=== PATIENT | male | born 1970 | race Hispanic/Latino ===

== ENCOUNTER 2017-05-24 14:20 | Emergency (ER) | payer OTHER ==
[2017-05-24 14:30] VITALS: BMI 59.2
[2017-05-24 14:37] VITALS: PULSE 79; RESP 18; TEMP 98.8; O2SAT 96
[2017-05-24 16:35] LABS: BASO # 0.1 K/uL (0.0-0.2); BASO % 1.2 % (0.0-2.0); EOS # 0.2 K/uL (0.0-0.7); EOS % 1.9 % (0.0-4.0); HEMATOCRIT 41.9 % (35.0-51.0); LYMPH # 2.1 K/uL (1.0-4.3); LYMPH % 24.8 % (20.0-40.0); MEAN CORPUSCULAR HEMOGLOBIN 29.6 pg (27.0-31.0); MONO # 0.8 K/uL (0.0-0.8); MONO % 9.2 % (0.0-10.0); RED CELL DISTRIBUTION WIDTH 13.4 % (11.5-14.5); WHITE BLOOD COUNT 8.5 K/uL (4.8-10.8)
[2017-05-24 17:23] LABS: ALB/GLOB RATIO 1.2 (1.0-2.1); ALKALINE PHOSPHATASE 72 U/L (38-126); ALT/SGPT 37 U/L (21-72); AST/SGOT 24 U/L (17-59); BILIRUBIN,TOTAL 0.4 mg/dL (0.2-1.3); BLOOD UREA NITROGEN 14 mg/dL (9-20); CALCIUM 8.6 mg/dl (8.6-10.4); CARBON DIOXIDE 27 mmol/L (22-30); CHLORIDE 98 mmol/L (98-107); GFR AFRICAN-AMERICAN > 60; GLUCOSE,RANDOM 121 mg/dL (75-110); POTASSIUM 4.3 mmol/L (3.6-5.2); SODIUM 132 mmol/L (132-148)
[2017-05-24 18:03] VITALS: BP 125/73
--- NOTE | 2017-05-24 18:26 | C.PDOC ---
Time Seen by Provider: 05/24/17 15:30 Chief Complaint (Nursing): Lower Extremity Problem/Injury History Per: Patient Onset/Duration Of Symptoms: Days (chronic) Current Symptoms Are (Timing): Still Present Location Of Injury: Right: Leg Quality Of Symptoms: Swollen, Draining (mild) Severity: Moderate Additional History Per: Prior Records Past Medical History Reviewed: Historical Data, Nursing Documentation, Vital Signs Vital Signs: Last Vital Signs Temp 98.8 F 05/24/17 14:30 Pulse 79 05/24/17 14:30 Resp 18 05/24/17 14:30 BP 125/73 05/24/17 18:00 Pulse Ox 96 05/24/17 14:30 - Medical History PMH: Diabetes, Peripheral Edema, Sleep Apnea Family History: States: Unknown Family Hx - Social History Hx Tobacco Use: No Hx Alcohol Use: No Hx Substance Use: No - Immunization History Hx Tetanus Toxoid Vaccination: No Hx Influenza Vaccination: No Hx Pneumococcal Vaccination: No Review Of Systems Except As Marked, All Systems Reviewed And Found Negative. Constitutional: Negative for: Fever, Weakness Cardiovascular: Negative for: Chest Pain Respiratory: Negative for: Shortness of Breath Gastrointestinal: Negative for: Vomiting, Abdominal Pain Musculoskeletal: Positive for: Leg Pain. Negative for: Neck Pain, Back Pain Neurological: Negative for: Weakness, Numbness, Seizures, Altered Mental Status Physical Exam - Physical Exam Appears: Non-toxic, No Acute Distress Skin: Warm, Dry Head: Atraumatic, Normacephalic Eye(s): bilateral: Normal Inspection, PERRL, EOMI Neck: Normal ROM, Supple Cardiovascular: Rhythm Regular Respiratory: Normal Breath Sounds, No Accessory Muscle Use Gastrointestinal/Abdominal: Soft, No Tenderness Back: No CVA Tenderness Extremity: Normal ROM, Pedal Edema, Other (right lower leg chronic ulcer. No signs of cellulitis or acute infection. ) Neurological/Psych: Oriented x3, Normal Motor, Normal Sensation ED Course And Treatment - Laboratory Results Result Diagrams: 05/24/17 16:30 05/24/17 17:06 Lab Interpretation: No Acute Changes O2 Sat by Pulse Oximetry: 96 Pulse Ox Interpretation: Normal Reassessment Condition: Improved Disposition Counseled Patient/Family Regarding: Studies Performed, Diagnosis, Need For Followup, Rx Given - Disposition Referrals: Elaina Floyd MD [Medical Doctor] - Disposition: HOME/ ROUTINE Disposition Time: 18:31 Condition: STABLE Additional Instructions: Follow up with your doctor for further evaluation and treatment. Return to the ER if you develop fever, redness, pus drainage, worsening of symptoms or if you have any other concerns. Prescriptions: hydroCHLOROthiazide [Microzide] 12.5 mg PO DAILY #30 cap Instructions: Leg Edema (ED) Forms: [employer] (Slovak) - Clinical Impression Clinical Impression: Chronic ulcer of right leg, Bilateral edema of lower extremity
== END 2017-05-24 18:48 | disposition home or self-care (01) ==
LOC: C.ER 14:20
DX: L97.919 Non-pressure chronic ulcer of unspecified part of right lower leg with unspecified severity (principal); R60.0 Localized edema; E11.9 Type 2 diabetes mellitus without complications

== ENCOUNTER 2017-06-03 14:39 | Inpatient (IN) | payer OTHER ==
[2017-06-03 14:55] VITALS: BMI 62.8
--- NOTE | 2017-06-03 16:42 | C.PDOC ---
History Of Present Illness 47 year old male with chronic leg infections presents to the ED to be evaluated. The patient states that his infection is getting worse in the bilateral lower extremities. He reports that he was told by his PMD to present to the ED for evaluation. Denies fever, chills. Time Seen by Provider: 06/03/17 16:13 Chief Complaint (Nursing): Lower Extremity Problem/Injury History Per: Patient History/Exam Limitations: no limitations Current Symptoms Are (Timing): Still Present Past Medical History Reviewed: Historical Data, Nursing Documentation, Vital Signs Vital Signs: Last Vital Signs Temp 98.4 F 06/03/17 14:54 Pulse 81 06/03/17 14:54 Resp 18 06/03/17 14:54 BP 162/92 H 06/03/17 14:54 Pulse Ox 99 06/03/17 16:49 - Medical History PMH: No Chronic Diseases, Diabetes, Peripheral Edema, Sleep Apnea Surgical History: No Surg Hx Family History: States: Unknown Family Hx - Social History Hx Tobacco Use: No Hx Alcohol Use: No Hx Substance Use: No - Immunization History Hx Tetanus Toxoid Vaccination: No Hx Influenza Vaccination: No Hx Pneumococcal Vaccination: No Review Of Systems Except As Marked, All Systems Reviewed And Found Negative. Constitutional: Negative for: Fever, Chills Musculoskeletal: Positive for: Leg Pain (b/l leg infection) Physical Exam - Physical Exam Appears: Well, No Acute Distress Skin: Normal Color, Warm, Dry, No Rash Head: Atraumatic, Normacephalic, No Tenderness, No Swelling Eye(s): bilateral: Normal Inspection, PERRL, EOMI Neck: Normal, Normal ROM, Supple Chest: Symmetrical, No Deformity, No Tenderness Cardiovascular: Rhythm Regular, No Edema, No Murmur Respiratory: Normal Breath Sounds, No Rales, No Rhonchi, No Wheezing Gastrointestinal/Abdominal: Normal Exam, Bowel Sounds, Soft, No Tenderness, No Guarding Back: Normal Inspection, No CVA Tenderness, No Muscle Spasm Extremity: Tenderness (tenderness to right calf extending to knee), No Deformity , Other (left leg (+) 2cm chronic venous ulcer to ankle; right leg draining large wounds with erythema tenderness right calf extending to the knee.) Extremity: Bilateral: Atraumatic Neurological/Psych: Oriented x3, Normal Speech, Normal Sensation ED Course And Treatment - Laboratory Results Result Diagrams: 06/03/17 16:45 06/03/17 16:45 O2 Sat by Pulse Oximetry: 99 (RA) Pulse Ox Interpretation: Normal Disposition - Disposition Disposition: HOSPITALIZED Disposition Time: 18:32 Condition: FAIR - POA Present On Arrival: None - Clinical Impression Clinical Impression: Cellulitis
[2017-06-03 16:50] LABS: BASO # 0.1 K/uL (0.0-0.2); BASO % 0.5 % (0.0-2.0); EOS # 0.1 K/uL (0.0-0.7); EOS % 1.5 % (0.0-4.0); HEMOGLOBIN 13.2 g/dL (12.0-18.0); LYMPH % 20.4 % (20.0-40.0); MEAN CORPUSCULAR HEMOGLOBIN 29.8 pg (27.0-31.0); MEAN CORPUSCULAR HGB CONC 33.8 g/dL (33.0-37.0); MONO # 0.7 K/uL (0.0-0.8); MONO % 7.5 % (0.0-10.0); NEUT # 6.8 K/uL (1.8-7.0); NEUT % 70.1 % (50.0-75.0); RBC 4.43 Mil/uL (4.40-5.90); RED CELL DISTRIBUTION WIDTH 13.6 % (11.5-14.5); WHITE BLOOD COUNT 9.7 K/uL (4.8-10.8)
[2017-06-03 16:57] LABS: PROTHROMBIN TIME 10.9 SECONDS (9.7-12.2)
[2017-06-03 17:00] LABS: ALBUMIN 3.8 g/dL (3.5-5.0); BLOOD UREA NITROGEN 16 mg/dL (9-20); CALCIUM 8.4 mg/dl (8.6-10.4); GFR AFRICAN-AMERICAN > 60; GFR NON-AFRICAN AMERICAN > 60
[2017-06-03 17:01] LABS: ALB/GLOB RATIO 1.2 (1.0-2.1); ALT/SGPT 39 U/L (21-72); AST/SGOT 24 U/L (17-59)
[2017-06-03] MEDS ORDERED: Piperacillin/Tazobact 3.375 gm 100 ML IV STA (19:03)
[2017-06-03] MEDS ORDERED: Vancomycin 1 GM 1 GM/250 ML BAG IV SCH (19:15)
[2017-06-03] MEDS ORDERED: Albuterol-Ipratrop 3 mg / 0.5 (3 ml) UD INH PRN ×2 (19:35→21:00)
--- NOTE | 2017-06-03 19:45 | CP.PCM.HP ---
History of Present Illness - History of Present Illness History of Present Illness: 47 year old male with PMHx of chronic b/l leg edema/infections/ulcers (since 2004), and DMII presents with b/l lower ext. cellulitis, b/l lower ext. edema, and left lower ext. ulcer. Symptoms are associated with Lower Ext. tenderness, numbness/tingling, low ext. weakness and slight decreased range of motion. He states that his leg drains fluid at times. Patient has been having these symptoms since 2004. He sees a vascular surgeon (Dr. Serrato?) and states he gets shots for his leg edema. He does not know what the shot is. He went to his vascular doctor this morning for the shots. He also went to his PMD afterwards who sent him to the ED to get treated for cellulitis that has failed outpatient treatment. Patient is somewhat of a poor historian. Of note, patient also complain of having episodes of pleuritic chest pain, orthopnea, and dyspnea on exertion in the past. Had an ECHO a couple months ago and was told that it was normal. Also complains of FERNANDO symptoms. Patient sent for sleep study but insurance doesn't cover it. ROS POSITIVES: Lower Ext. tenderness, numbness/tingling, and decreased range of motion NEGATIVES: Fevers, chills, current SOB, current chest pain, current abdominal pain, nausea, vomiting, diarrhea, constipation, urinary symptoms. PMHx: chronic leg ulcers, chronic leg edema, chronic leg infections, DMII PSHx: laser surgery on legs (5-7 years ago) Allergies: NKDA, Seasonal Allergies Social Hx: Denies tobacco, alcohol, or illicit drug use. Works in [employer] at long-term but is on disability. Lives by himself in [place] (Basement of 2 family home) FamHx: Unknown Meds: Unknown Insulin, Unknown Diabetic Pill PMD: Dr. Elaina Terrell Present on Admission - Present on Admission Any Indicators Present on Admission: No Review of Systems - Review of Systems Review of Systems: As per HPI Past Patient History - Past Social History Smoking Status: Never Smoked - CARDIAC Hx Peripheral Edema: Yes - PULMONARY Hx Sleep Apnea: Yes - ENDOCRINE/METABOLIC Hx Endocrine Disorders: Yes Hx Diabetes Mellitus Type 2: Yes - PSYCHIATRIC Hx Substance Use: No - SURGICAL HISTORY Hx Surgeries: Yes Other/Comment: laser procedures on both legs Meds Allergies/Adverse Reactions: Allergies Allergy/AdvReac Type Severity Reaction Status Date / Time No Known Allergies Allergy Verified 06/03/17 14:53 Physical Exam - Constitutional Additional comments: Morbidly Obese - Head Exam Head Exam: ATRAUMATIC, NORMAL INSPECTION, NORMOCEPHALIC - Eye Exam Eye Exam: Normal appearance. absent: Scleral icterus - ENT Exam ENT Exam: Mucous Membranes Moist - Neck Exam Neck exam: Negative for: Lymphadenopathy - Respiratory Exam Respiratory Exam: Accessory Muscle Use, Clear to Auscultation Bilateral. absent : Rales, Rhonchi, Wheezes - Cardiovascular Exam Cardiovascular Exam: RRR, +S1, +S2 - GI/Abdominal Exam GI & Abdominal Exam: Soft, Tenderness Additional comments: Mild RUQ tenderness - Extremities Exam Extremities exam: Positive for: pedal edema (+3), tenderness. Negative for: normal inspection - Neurological Exam Neurological exam: Alert, Oriented x3 - Psychiatric Exam Psychiatric exam: Normal Affect, Normal Mood - Skin Additional comments: R leg - +3 Edema erythematous, and draining. Currently Wrapped L leg - +3 edema, 1x1cm ulcer on the left lower ext. Currently wrapped Results - Vital Signs Recent Vital Signs: Last Vital Signs Temp 98.4 F 06/03/17 14:54 Pulse 81 06/03/17 14:54 Resp 18 06/03/17 14:54 BP 162/92 H 06/03/17 14:54 Pulse Ox 99 06/03/17 18:39 - Labs Result Diagrams: 06/03/17 16:45 06/03/17 16:45 Labs: Laboratory Results - last 24 hr 06/03/17 06/03/17 06/03/17 16:45 16:45 16:45 WBC 9.7 RBC 4.43 Hgb 13.2 Hct 39.0 MCV 88.0 MCH 29.8 MCHC 33.8 RDW 13.6 Plt Count 374 MPV 7.0 L Neut % (Auto) 70.1 Lymph % (Auto) 20.4 [place] % (Auto) 7.5 Eos % (Auto) 1.5 Baso % (Auto) 0.5 Neut # 6.8 Lymph # 2.0 [place] # 0.7 Eos # 0.1 Baso # 0.1 PT 10.9 INR 1.0 APTT 28 Sodium 132 Potassium 3.7 Chloride 94 L Carbon Dioxide 29 Anion Gap 13 BUN 16 Creatinine 0.6 L Est GFR ( Amer) > 60 Est GFR (Non-Af Amer) > 60 Random Glucose 171 H Calcium 8.4 L Total Bilirubin 0.4 AST 24 ALT 39 Alkaline Phosphatase 72 Total Protein 7.0 Albumin 3.8 Globulin 3.1 Albumin/Globulin Ratio 1.2 Assessment & Plan - Assessment and Plan (Free Text) Assessment: 47 year old male with PMHx of chronic b/l leg edema/infections/ulcers (since 2004), and DMII presents with b/l lower ext. cellulitis, b/l lower ext. edema, and left lower ext. ulcer. Plan: Lower Ext. Cellulitis with ulcer complications likely 2/2 Metabolic Syndrome Vascular consult - Dr. Gautam Consider Podiatry Consult Consider ID Consult PT/OT Venous/Arterial Dopplers IV Vanc 1gram Q12H IV Zosyn 3.375 Q6H ProCal Blood Cultures Lipid Panel in AM DM II ISS - Medium Follow up with Pharmacy in the AM for meds HgBA1c and lipid panel Seasonal Allergies/Intermitent SOB SOB likely multifactorial - Possible FERNANDO, CHF, PE Pro-BNP Flonase Duonebs PRN Consider D-Dimer Consider CTA Morbid Obesity [employer] Referral Proph Heparin Protonix Florastor Heart Health Diet Patient seen and discussed with Attending Kevin Veliz -PGY1 - Date & Time Date: 06/03/17 Time: 18:30
[2017-06-03] MEDS: Piperacill/Tazo 3.375gm in Dex 3.375 GM/50 ML BAG IVPB SCH (21:30)
[2017-06-03] MEDS: Fluticasone Nasal 50 mcg/Spray NAS SCH ×2 (21:32→22:23)
[2017-06-03 21:58] LABS: B-TYPE NATRIURETIC PEPTIDE 38.3 pg/mL (0-450)
[2017-06-03] MEDS: (Novolin R) Insulin Human Regular 100 units/ml vial SC SCH (22:01)
[2017-06-04] MEDS: Piperacill/Tazo 3.375gm in Dex 3.375 GM/50 ML BAG IVPB SCH ×4 (00:54→20:30)
--- NOTE | 2017-06-04 06:00 | CP.PCM.CON ---
History of Present Illness - History of Present Illness History of Present Illness: Surgery 47 M w ho obesity, leg ulcer, venous stasis, DM came with chronic leg ulcer. Surgery is consulted to evaluate for venous stasis. Pt reports he has chronic leg ulcers and edema. b/l legs are getting larger and edematous. Area drains serous fluids. Pt is seen by vascular surgeon and has UNNA boots on. Reports that UNNA boots helps. Denies F/C/N/V/D/CP. Reports SOB on exertion/decreased ROM/numbess/tingling. Pt had not tried compression sequential boots. Reports laser vein surgery on legs. Pt reports ECHO was normal. PMHx: chronic leg ulcers, chronic leg edema, chronic leg infections, DMII , obesity, FERNANDO PSHx: laser vein surgery on legs (5-7 years ago) Social Hx: Denies tobacco, alcohol, or illicit drug use. 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 Lives by himself in [place] (Basement of 2 family home) PMD: Dr. Elaina Terrell Review of Systems - Review of Systems Review of Systems: See HPI Past Patient History - Past Medical History & Family History Past Medical History?: Yes - Past Social History Smoking Status: Never Smoked - CARDIAC Hx Peripheral Edema: Yes - PULMONARY Hx Sleep Apnea: Yes - ENDOCRINE/METABOLIC Hx Endocrine Disorders: Yes Hx Diabetes Mellitus Type 2: Yes - MUSCULOSKELETAL/RHEUMATOLOGICAL Hx Falls: No - PSYCHIATRIC Hx Substance Use: No - SURGICAL HISTORY Hx Surgeries: Yes Other/Comment: laser procedures on both legs Meds Allergies/Adverse Reactions: Allergies Allergy/AdvReac Type Severity Reaction Status Date / Time No Known Allergies Allergy Verified 06/03/17 14:53 - Medications Medications: Current Medications Albuterol/Ipratropium (Duoneb 3 Mg/0.5 Mg (3 Ml) Ud) 3 ml INH RQ6 PRN PRN Reason: SOB, Wheezing Fluticasone Propionate (Flonase) 1 spr LUISA RQ12 [facility] Last Admin: 06/03/17 22:23 Dose: Not Given Heparin Sodium (Porcine) (Heparin) 5,000 units SC Q8 [facility] Last Admin: 06/03/17 22:24 Dose: 5,000 units Vancomycin HCl (Vancomycin 1gm In Normal Saline Addvantage) 1 gm in 250 mls @ 166.667 mls/hr IV STAT [facility] Piperacillin Sod/Tazobactam Sod (Zosyn 3.375 Gm Iv Premix) 3.375 gm in 50 mls @ 100 mls/hr IVPB Q6H [facility] Last Admin: 06/04/17 00:54 Dose: 100 mls/hr Vancomycin HCl 1 gm/ Sodium (Chloride) 250 mls @ 166.6 mls/hr IVPB Q12H [facility] Insulin Human Regular (Novolin R) 0 unit SC ACHS [facility] PRN Reason: Protocol Last Admin: 06/03/17 22:01 Dose: Not Given Pantoprazole Sodium (Protonix Ec Tab) 40 mg PO DAILY [facility] Pneumococcal Polyvalent Vaccine (Pneumovax 23 Vaccine) 0.5 ml IM .ONCE ONE Stop: 06/06/17 10:01 Saccharomyces Boulardii (Florastor) 250 mg PO BID [facility] Physical Exam - Constitutional Appears: No Acute Distress - Head Exam Head Exam: ATRAUMATIC, NORMAL INSPECTION, NORMOCEPHALIC - Eye Exam Eye Exam: EOMI, Normal appearance, PERRL Pupil Exam: NORMAL ACCOMODATION, PERRL - ENT Exam ENT Exam: Mucous Membranes Moist, Normal Exam - Neck Exam Neck exam: Positive for: Normal Inspection - Respiratory Exam Respiratory Exam: Clear to Auscultation Bilateral, NORMAL BREATHING PATTERN - Cardiovascular Exam Cardiovascular Exam: REGULAR RHYTHM - GI/Abdominal Exam GI & Abdominal Exam: Normal Bowel Sounds, Soft. absent: Distended, Firm, Guarding, Tenderness - Extremities Exam Extremities exam: Positive for: pedal edema, tenderness. Negative for: full ROM , normal inspection Additional comments: b/l LE edema . UNNA boots on. - Back Exam Back exam: NORMAL INSPECTION - Neurological Exam Neurological exam: Alert, CN II-XII Intact, Normal Gait, Oriented x3, Reflexes Normal - Psychiatric Exam Psychiatric exam: Normal Affect, Normal Mood - Skin Skin Exam: Erythema, Warm Results - Vital Signs Recent Vital Signs: Last Vital Signs Temp 98.3 F 06/03/17 23:27 Pulse 85 06/03/17 23:27 Resp 20 06/03/17 23:27 BP 145/82 06/03/17 23:27 Pulse Ox 97 06/03/17 23:27 - Labs Result Diagrams: 06/03/17 16:45 06/03/17 16:45 Labs: Laboratory Results - last 24 hr 0106/03/17 06/03/17 16:45 16:45 16:45 WBC 9.7 RBC 4.43 Hgb 13.2 Hct 39.0 MCV 88.0 MCH 29.8 MCHC 33.8 RDW 13.6 Plt Count 374 MPV 7.0 L Neut % (Auto) 70.1 Lymph % (Auto) 20.4 [place] % (Auto) 7.5 Eos % (Auto) 1.5 Baso % (Auto) 0.5 Neut # 6.8 Lymph # 2.0 [place]igg # 0.7 Eos # 0.1 Baso # 0.1 PT 10.9 INR 1.0 APTT 28 Sodium 132 Potassium 3.7 Chloride 94 L Carbon Dioxide 29 Anion Gap 13 BUN 16 Creatinine 0.6 L Est GFR ( Amer) > 60 Est GFR (Non-Af Amer) > 60 POC Glucose (mg/dL) Random Glucose 171 H Hemoglobin A1c Calcium 8.4 L Total Bilirubin 0.4 AST 24 ALT 39 Alkaline Phosphatase 72 NT-Pro-B Natriuret Pep 38.3 Total Protein 7.0 Albumin 3.8 Globulin 3.1 Albumin/Globulin Ratio 1.2 Influenza Typ A,B (EIA) 06/03/17 06/03/17 06/03/17 21:28 21:37 22:27 WBC RBC Hgb Hct MCV MCH MCHC RDW Plt Count MPV Neut % (Auto) Lymph % (Auto) [place] % (Auto) Eos % (Auto) Baso % (Auto) Neut # Lymph # [place]igg # Eos # Baso # PT INR APTT Sodium Potassium Chloride Carbon Dioxide Anion Gap BUN Creatinine Est GFR ( Amer) Est GFR (Non-Af Amer) POC Glucose (mg/dL) 94 Random Glucose Hemoglobin A1c 6.9 H Calcium Total Bilirubin AST ALT Alkaline Phosphatase NT-Pro-B Natriuret Pep Total Protein Albumin Globulin Albumin/Globulin Ratio Influenza Typ A,B (EIA) Negative for flu a/b 06/04/17 02:16 WBC RBC Hgb Hct MCV MCH MCHC RDW Plt Count MPV Neut % (Auto) Lymph % (Auto) [place] % (Auto) Eos % (Auto) Baso % (Auto) Neut # Lymph # Trigg # Eos # Baso # PT INR APTT Sodium Potassium Chloride Carbon Dioxide Anion Gap BUN Creatinine Est GFR ( Amer) Est GFR (Non-Af Amer) POC Glucose (mg/dL) 105 Random Glucose Hemoglobin A1c Calcium Total Bilirubin AST ALT Alkaline Phosphatase NT-Pro-B Natriuret Pep Total Protein Albumin Globulin Albumin/Globulin Ratio Influenza Typ A,B (EIA) Assessment & Plan - Assessment and Plan (Free Text) Assessment: venous stasis -leg elevation -cont UNNA boots -ROM excercise -Ambulate -Medical management Will DW Dr. Gautam
[2017-06-04 08:01] LABS: ALB/GLOB RATIO 1.1 (1.0-2.1); ALBUMIN 3.5 g/dL (3.5-5.0); ALT/SGPT 47 U/L (21-72); AST/SGOT 33 U/L (17-59); BLOOD UREA NITROGEN 14 mg/dL (9-20); CALCIUM 8.2 mg/dl (8.6-10.4); GFR AFRICAN-AMERICAN > 60; GFR NON-AFRICAN AMERICAN > 60; HDL CHOLESTEROL 41 mg/dL (30-70)
[2017-06-04 08:09] LABS: LDL CHOLESTEROL 112 mg/dL (0-129)
[2017-06-04] MEDS: (Novolin R) Insulin Human Regular 100 units/ml vial SC SCH ×4 (08:40→21:38)
[2017-06-04] MEDS: Fluticasone Nasal 50 mcg/Spray NAS SCH ×2 (10:38→20:39)
[2017-06-04] MEDS: Saccharomyces Boulardi 250 mg Cap PO SCH ×2 (10:39→17:58)
[2017-06-04] MEDS: Pantoprazole 40 mg EC Tab PO SCH (10:39)
--- NOTE | 2017-06-04 11:02 | CP.PCM.PN ---
Subjective - Date & Time of Evaluation Date of Evaluation: 06/04/17 Time of Evaluation: 11:01 - Subjective Subjective: needs compression and elevation longterm Objective - Vital Signs/Intake and Output Vital Signs (last 24 hours): Temp Pulse Resp BP Pulse Ox 97.8 F 81 20 129/76 96 06/04/17 08:13 06/04/17 08:13 06/04/17 08:13 06/04/17 08:13 06/04/17 08:13 Intake and Output: 06/04/17 06/04/17 06:59 18:59 Intake Total 300 Balance 300 - Medications Medications: Current Medications Albuterol/Ipratropium (Duoneb 3 Mg/0.5 Mg (3 Ml) Ud) 3 ml INH RQ6 PRN PRN Reason: SOB, Wheezing Fluticasone Propionate (Flonase) 1 spr LUISA RQ12 [facility] Last Admin: 06/04/17 10:38 Dose: 1 spr Heparin Sodium (Porcine) (Heparin) 5,000 units SC Q8 [facility] Last Admin: 06/04/17 06:18 Dose: 5,000 units Vancomycin HCl (Vancomycin 1gm In Normal Saline Addvantage) 1 gm in 250 mls @ 166.667 mls/hr IV STAT [facility] Piperacillin Sod/Tazobactam Sod (Zosyn 3.375 Gm Iv Premix) 3.375 gm in 50 mls @ 100 mls/hr IVPB Q6H [facility] Last Admin: 06/04/17 09:08 Dose: 100 mls/hr Vancomycin HCl 1 gm/ Sodium (Chloride) 250 mls @ 166.6 mls/hr IVPB Q12H [facility] Last Admin: 06/04/17 06:13 Dose: 166.6 mls/hr Insulin Human Regular (Novolin R) 0 unit SC ACHS [facility] PRN Reason: Protocol Last Admin: 06/04/17 08:40 Dose: Not Given Pantoprazole Sodium (Protonix Ec Tab) 40 mg PO DAILY [facility] Last Admin: 06/04/17 10:39 Dose: 40 mg Pneumococcal Polyvalent Vaccine (Pneumovax 23 Vaccine) 0.5 ml IM .ONCE ONE Stop: 06/06/17 10:01 Saccharomyces Boulardii (Florastor) 250 mg PO BID [facility] Last Admin: 06/04/17 10:39 Dose: 250 mg - Labs Labs: 06/03/17 16:45 06/04/17 07:20 PT 10.9 SECONDS (9.7-12.2) 06/03/17 16:45 INR 1.0 06/03/17 16:45 APTT 28 SECONDS (21-34) 06/03/17 16:45
--- NOTE | 2017-06-04 14:30 | CP.PCM.PN ---
Subjective - Date & Time of Evaluation Date of Evaluation: 06/04/17 Time of Evaluation: 07:00 - Subjective Subjective: PGY1- Medicine Note- Dr. Hale's Service Patient seen and examined at bedside and in no acute distress. Patient says his lower extremities are painful especially when he moves them or they are touched. Patient denies all other complaints including headache, chest pain, shortness of breath, abdominal pain, nausea, vomiting, constipation, and diarrhea. Objective - Vital Signs/Intake and Output Vital Signs (last 24 hours): Temp Pulse Resp BP Pulse Ox 97.8 F 81 20 129/76 96 06/04/17 08:13 06/04/17 08:13 06/04/17 08:13 06/04/17 08:13 06/04/17 08:13 Intake and Output: 06/04/17 06/04/17 06:59 18:59 Intake Total 300 Balance 300 - Medications Medications: Current Medications Albuterol/Ipratropium (Duoneb 3 Mg/0.5 Mg (3 Ml) Ud) 3 ml INH RQ6 PRN PRN Reason: SOB, Wheezing Fluticasone Propionate (Flonase) 1 spr LUISA RQ12 [facility] Last Admin: 06/04/17 10:38 Dose: 1 spr Heparin Sodium (Porcine) (Heparin) 5,000 units SC Q8 [facility] Last Admin: 06/04/17 14:06 Dose: 5,000 units Vancomycin HCl (Vancomycin 1gm In Normal Saline Addvantage) 1 gm in 250 mls @ 166.667 mls/hr IV STAT [facility] Piperacillin Sod/Tazobactam Sod (Zosyn 3.375 Gm Iv Premix) 3.375 gm in 50 mls @ 100 mls/hr IVPB Q6H [facility] Last Admin: 06/04/17 14:05 Dose: 100 mls/hr Vancomycin HCl 1 gm/ Sodium (Chloride) 250 mls @ 166.6 mls/hr IVPB Q12H [facility] Last Admin: 06/04/17 06:13 Dose: 166.6 mls/hr Insulin Human Regular (Novolin R) 0 unit SC ACHS [facility] PRN Reason: Protocol Last Admin: 06/04/17 12:13 Dose: Not Given Pantoprazole Sodium (Protonix Ec Tab) 40 mg PO DAILY [facility] Last Admin: 06/04/17 10:39 Dose: 40 mg Pneumococcal Polyvalent Vaccine (Pneumovax 23 Vaccine) 0.5 ml IM .ONCE ONE Stop: 06/06/17 10:01 Saccharomyces Boulardii (Florastor) 250 mg PO BID [facility] Last Admin: 06/04/17 10:39 Dose: 250 mg - Labs Labs: 06/03/17 16:45 06/04/17 07:20 PT 10.9 SECONDS (9.7-12.2) 06/03/17 16:45 INR 1.0 06/03/17 16:45 APTT 28 SECONDS (21-34) 06/03/17 16:45 - Constitutional Appears: Non-toxic, No Acute Distress, Other (morbidly obese) - Head Exam Head Exam: ATRAUMATIC, NORMAL INSPECTION, NORMOCEPHALIC - Eye Exam Eye Exam: EOMI, Normal appearance - ENT Exam ENT Exam: Mucous Membranes Moist - Respiratory Exam Respiratory Exam: Clear to Ausculation Bilateral, NORMAL BREATHING PATTERN. absent: Rales, Rhonchi, Wheezes, Respiratory Distress, Stridor - Cardiovascular Exam Cardiovascular Exam: REGULAR RHYTHM, RRR, +S1, +S2 - GI/Abdominal Exam GI & Abdominal Exam: Soft, Normal Bowel Sounds. absent: Tenderness - Extremities Exam Extremities Exam: Pedal Edema, Tenderness Additional comments: 3+ pitting edema b/l - Neurological Exam Neurological Exam: Alert, Awake, Oriented x3 - Psychiatric Exam Psychiatric exam: Normal Affect, Normal Mood - Skin Skin Exam: Warm Additional comments: R leg - +3 Edema erythematous, and draining. Currently Wrapped L leg - +3 edema, 1x1cm ulcer on the left lower ext. Currently wrapped Assessment and Plan - Assessment and Plan (Free Text) Assessment: Lower Ext. Cellulitis with ulcer complications likely 2/2 Metabolic Syndrome Vascular consult - Dr. Gautam, help appreciated Consider ID Consult PT/OT f/u Venous/Arterial Dopplers IV Vanc 1gram Q12H IV Zosyn 3.375 Q6H f/u Blood Cultures UNNA boots as per surgery DM II ISS - Medium Follow up with Pharmacy in the AM for meds HgBA1c: 6.9 Lipid Panel: Triglycerides: 173, Cholesterol: 184, LDL: 112, HDL: 41 Seasonal Allergies/Intermitent SOB SOB likely multifactorial - Possible FERNANDO, CHF, PE Pulm consulted, Dr. 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
[2017-06-05] MEDS: Piperacill/Tazo 3.375gm in Dex 3.375 GM/50 ML BAG IVPB SCH ×4 (01:16→20:51)
[2017-06-05] MEDS: (Novolin R) Insulin Human Regular 100 units/ml vial SC SCH ×4 (08:41→21:52)
--- NOTE | 2017-06-05 09:01 | CP.PCM.PN ---
Subjective - Date & Time of Evaluation Date of Evaluation: 06/05/17 Time of Evaluation: 07:25 - Subjective Subjective: Vascular Surgery Dr. Gautam Pt S&E @bedside. NAEO. pt sleeping comfortably. Objective - Vital Signs/Intake and Output Vital Signs (last 24 hours): Temp Pulse Resp BP Pulse Ox 98.7 F 79 20 130/78 97 06/05/17 00:00 06/05/17 00:00 06/05/17 00:00 06/05/17 00:00 06/05/17 00:00 Intake and Output: 06/05/17 06/05/17 06:59 18:59 Intake Total 600 540 Balance 600 540 - Medications Medications: Current Medications Albuterol/Ipratropium (Duoneb 3 Mg/0.5 Mg (3 Ml) Ud) 3 ml INH RQ6 PRN PRN Reason: SOB, Wheezing Fluticasone Propionate (Flonase) 1 spr LUISA RQ12 [facility] Last Admin: 06/04/17 20:39 Dose: 1 spr Heparin Sodium (Porcine) (Heparin) 5,000 units SC Q8 [facility] Last Admin: 06/05/17 05:33 Dose: 5,000 units Piperacillin Sod/Tazobactam Sod (Zosyn 3.375 Gm Iv Premix) 3.375 gm in 50 mls @ 100 mls/hr IVPB Q6H [facility] Last Admin: 06/05/17 07:00 Dose: 100 mls/hr Vancomycin HCl 1 gm/ Sodium (Chloride) 250 mls @ 166.6 mls/hr IVPB Q12H [facility] Last Admin: 06/05/17 06:00 Dose: 166.6 mls/hr Insulin Human Regular (Novolin R) 0 unit SC ACHS [facility] PRN Reason: Protocol Last Admin: 06/05/17 08:41 Dose: Not Given Pantoprazole Sodium (Protonix Ec Tab) 40 mg PO DAILY [facility] Last Admin: 06/04/17 10:39 Dose: 40 mg Pneumococcal Polyvalent Vaccine (Pneumovax 23 Vaccine) 0.5 ml IM .ONCE ONE Stop: 06/06/17 10:01 Saccharomyces Boulardii (Florastor) 250 mg PO BID [facility] Last Admin: 06/04/17 17:58 Dose: 250 mg - Labs Labs: 06/03/17 16:45 06/04/17 07:20 PT 10.9 SECONDS (9.7-12.2) 06/03/17 16:45 INR 1.0 06/03/17 16:45 APTT 28 SECONDS (21-34) 06/03/17 16:45 - Constitutional Appears: Non-toxic, No Acute Distress - Head Exam Head Exam: NORMAL INSPECTION - Respiratory Exam Respiratory Exam: NORMAL BREATHING PATTERN. absent: Accessory Muscle Use, Respiratory Distress - GI/Abdominal Exam Additional comments: obese - Extremities Exam Additional comments: B/L MARY ELLEN Boots in place - Neurological Exam Neurological Exam: absent: Awake (sleeping) - Skin Skin Exam: Dry, Normal Color, Warm Assessment and Plan - Assessment and Plan (Free Text) Assessment: 47 y/o morbidly obese M w/ venous stasis - maintain leg elevation - cont UNNA boots - f/u results of LE U/S - encourage OOB to chair/Amb - cont medical management Pt discussed w/ Dr. Lotus Welsh DO PGY2
[2017-06-05 09:42] LABS: ALB/GLOB RATIO 1.2 (1.0-2.1); ALBUMIN 3.5 g/dL (3.5-5.0); ALT/SGPT 52 U/L (21-72); AST/SGOT 32 U/L (17-59); BLOOD UREA NITROGEN 11 mg/dL (9-20); CALCIUM 8.3 mg/dl (8.6-10.4); GFR AFRICAN-AMERICAN > 60; GFR NON-AFRICAN AMERICAN > 60; MAGNESIUM 1.9 mg/dL (1.6-2.3)
[2017-06-05] MEDS ORDERED: Dextrose 50% SYRINGE Inj (50 ml) IV PRN (10:18)
[2017-06-05] MEDS ORDERED: Glucagon Recombinant 1 mg Inj IM PRN (10:18)
[2017-06-05] MEDS: Pantoprazole 40 mg EC Tab PO SCH (10:44)
[2017-06-05] MEDS: Fluticasone Nasal 50 mcg/Spray NAS SCH ×3 (10:44→20:53)
[2017-06-05] MEDS: Saccharomyces Boulardi 250 mg Cap PO SCH ×2 (10:44→17:47)
--- NOTE | 2017-06-05 11:07 | CP.PCM.PN ---
Subjective - Date & Time of Evaluation Date of Evaluation: 06/05/17 Time of Evaluation: 11:00 - Subjective Subjective: Dr. Hale note: Patient is seen and examined in room. He says has been having pain in his legs for several days and has had cellulitis before. He uses insulin for diabetes and also sees a vascular surgeon for "poor veins". Objective - Vital Signs/Intake and Output Vital Signs (last 24 hours): Temp Pulse Resp BP Pulse Ox 97.9 F 66 20 98/57 L 96 06/05/17 09:00 06/05/17 09:00 06/05/17 09:00 06/05/17 09:00 06/05/17 09:00 Intake and Output: 06/05/17 06/05/17 06:59 18:59 Intake Total 600 540 Balance 600 540 - Medications Medications: Current Medications Albuterol/Ipratropium (Duoneb 3 Mg/0.5 Mg (3 Ml) Ud) 3 ml INH RQ6 PRN PRN Reason: SOB, Wheezing Dextrose (Dextrose 50% Inj) 0 ml IV STAT PRN; Protocol PRN Reason: Hypoglycemia Protocol Dextrose (Glutose 15) 15 gm PO ONCE PRN; Protocol PRN Reason: Hypoglycemia Protocol Fluticasone Propionate (Flonase) 1 spr LUISA RQ12 [facility] Last Admin: 06/05/17 10:44 Dose: 1 spr Glucagon (Glucagen Diagnostic Kit) 1 mg IM STAT PRN; Protocol PRN Reason: Hypoglycemia Protocol Heparin Sodium (Porcine) (Heparin) 5,000 units SC Q8 [facility] Last Admin: 06/05/17 05:33 Dose: 5,000 units Piperacillin Sod/Tazobactam Sod (Zosyn 3.375 Gm Iv Premix) 3.375 gm in 50 mls @ 100 mls/hr IVPB Q6H [facility] Last Admin: 06/05/17 07:00 Dose: 100 mls/hr Vancomycin HCl 1 gm/ Sodium (Chloride) 250 mls @ 166.6 mls/hr IVPB Q12H [facility] Last Admin: 06/05/17 06:00 Dose: 166.6 mls/hr Dextrose (Dextrose 5% In Water 1000 Ml) 1,000 mls @ 0 mls/hr IV .Q0M PRN; Protocol; Per Protocol PRN Reason: Hypoglycemia Protocol Insulin Human Regular (Novolin R) 0 unit SC ACHS [facility] PRN Reason: Protocol Last Admin: 06/05/17 08:41 Dose: Not Given Pantoprazole Sodium (Protonix Ec Tab) 40 mg PO DAILY [facility] Last Admin: 06/05/17 10:44 Dose: 40 mg Pneumococcal Polyvalent Vaccine (Pneumovax 23 Vaccine) 0.5 ml IM .ONCE ONE Stop: 06/06/17 10:01 Saccharomyces Boulardii (Florastor) 250 mg PO BID [facility] Last Admin: 06/05/17 10:44 Dose: 250 mg - Labs Labs: 06/03/17 16:45 06/05/17 09:12 PT 10.9 SECONDS (9.7-12.2) 06/03/17 16:45 INR 1.0 06/03/17 16:45 APTT 28 SECONDS (21-34) 06/03/17 16:45 - Constitutional Appears: Non-toxic, No Acute Distress - Eye Exam Eye Exam: Normal appearance - Respiratory Exam Respiratory Exam: Clear to Ausculation Bilateral. absent: Rales, Rhonchi, Wheezes - Cardiovascular Exam Cardiovascular Exam: REGULAR RHYTHM, RRR, +S1, +S2. absent: Gallop, Rubs - GI/Abdominal Exam GI & Abdominal Exam: Soft, Normal Bowel Sounds. absent: Tenderness - Extremities Exam Additional comments: both legs in dressing. - Psychiatric Exam Psychiatric exam: Normal Affect, Normal Mood - Skin Additional comments: redness on his legs. Assessment and Plan - Assessment and Plan (Free Text) Assessment: Lower Ext. Cellulitis with ulcer 06/05: Day 2 of IV Vanc and Zosyn, blood cultures negative so far. continue UNNA boots. complications likely 2/2 Metabolic Syndrome Vascular consult - Dr. Gautam, help appreciated Consider ID Consult PT/OT f/u Venous/Arterial Dopplers IV Vanc 1gram Q12H IV Zosyn 3.375 Q6H f/u Blood Cultures UNNA boots as per surgery DM II 06/05: continue current management. ISS - Medium Follow up with Pharmacy in the AM for meds HgBA1c: 6.9 Lipid Panel: Triglycerides: 173, Cholesterol: 184, LDL: 112, HDL: 41 Seasonal Allergies/Intermitent SOB 06/05: Echo pending. Follow up with Dr. maldonado, most likely obesity hyperventilation syndrome considering his BMI of 62. SOB likely multifactorial - Possible FERNANDO, CHF, PE Pulm consulted, Dr. Maldonado, help appreciated Pro-BNP: 38.3 Flonase Duonebs PRN f/u Echo Morbid Obesity Etl Application Developer Referral Proph Heparin 5000 u sc q8h Protonix 40 mg po daily Florastor Heart Healthy Diet
--- NOTE | 2017-06-05 14:57 | CP.PCM.CON ---
Past Patient History - Past Medical History & Family History Past Medical History?: Yes - Past Social History Smoking Status: Never Smoked - CARDIAC Hx Peripheral Edema: Yes - PULMONARY Hx Sleep Apnea: Yes - ENDOCRINE/METABOLIC Hx Endocrine Disorders: Yes Hx Diabetes Mellitus Type 2: Yes - MUSCULOSKELETAL/RHEUMATOLOGICAL Hx Falls: No - PSYCHIATRIC Hx Substance Use: No - SURGICAL HISTORY Hx Surgeries: Yes Other/Comment: laser procedures on both legs Meds Allergies/Adverse Reactions: Allergies Allergy/AdvReac Type Severity Reaction Status Date / Time No Known Allergies Allergy Verified 06/03/17 14:53 - Medications Medications: Current Medications Albuterol/Ipratropium (Duoneb 3 Mg/0.5 Mg (3 Ml) Ud) 3 ml INH RQ6 PRN PRN Reason: SOB, Wheezing Dextrose (Dextrose 50% Inj) 0 ml IV STAT PRN; Protocol PRN Reason: Hypoglycemia Protocol Dextrose (Glutose 15) 15 gm PO ONCE PRN; Protocol PRN Reason: Hypoglycemia Protocol Fluticasone Propionate (Flonase) 1 spr LUISA RQ12 [facility] Last Admin: 06/05/17 10:44 Dose: 1 spr Glucagon (Glucagen Diagnostic Kit) 1 mg IM STAT PRN; Protocol PRN Reason: Hypoglycemia Protocol Heparin Sodium (Porcine) (Heparin) 5,000 units SC Q8 [facility] Last Admin: 06/05/17 14:20 Dose: 5,000 units Piperacillin Sod/Tazobactam Sod (Zosyn 3.375 Gm Iv Premix) 3.375 gm in 50 mls @ 100 mls/hr IVPB Q6H [facility] Last Admin: 06/05/17 14:20 Dose: 100 mls/hr Vancomycin HCl 1 gm/ Sodium (Chloride) 250 mls @ 166.6 mls/hr IVPB Q12H [facility] Last Admin: 06/05/17 06:00 Dose: 166.6 mls/hr Dextrose (Dextrose 5% In Water 1000 Ml) 1,000 mls @ 0 mls/hr IV .Q0M PRN; Protocol; Per Protocol PRN Reason: Hypoglycemia Protocol Insulin Human Regular (Novolin R) 0 unit SC ACHS [facility] PRN Reason: Protocol Last Admin: 06/05/17 12:57 Dose: Not Given Pantoprazole Sodium (Protonix Ec Tab) 40 mg PO DAILY [facility] Last Admin: 06/05/17 10:44 Dose: 40 mg Pneumococcal Polyvalent Vaccine (Pneumovax 23 Vaccine) 0.5 ml IM .ONCE ONE Stop: 06/06/17 10:01 Saccharomyces Boulardii (Florastor) 250 mg PO BID [facility] Last Admin: 06/05/17 10:44 Dose: 250 mg Results - Vital Signs Recent Vital Signs: Last Vital Signs Temp 97.9 F 06/05/17 09:00 Pulse 66 06/05/17 09:00 Resp 20 06/05/17 09:00 BP 98/57 L 06/05/17 09:00 Pulse Ox 96 06/05/17 09:00 - Labs Result Diagrams: 06/03/17 16:45 06/05/17 09:12 Labs: Laboratory Results - last 24 hr 06/04/17 06/04/17 06/05/17 16:25 21:31 07:26 Sodium Potassium Chloride Carbon Dioxide Anion Gap BUN Creatinine Est GFR ( Amer) Est GFR (Non-Af Amer) POC Glucose (mg/dL) 123 H 112 H 114 H Random Glucose Calcium Phosphorus Magnesium Total Bilirubin AST ALT Alkaline Phosphatase Total Protein Albumin Globulin Albumin/Globulin Ratio 06/05/17 06/05/17 09:12 12:05 Sodium 132 Potassium 4.3 Chloride 99 Carbon Dioxide 29 Anion Gap 9 L BUN 11 Creatinine 0.7 L Est GFR ( Amer) > 60 Est GFR (Non-Af Amer) > 60 POC Glucose (mg/dL) 123 H Random Glucose 134 H Calcium 8.3 L Phosphorus 4.3 Magnesium 1.9 Total Bilirubin 0.6 AST 32 ALT 52 Alkaline Phosphatase 66 Total Protein 6.5 Albumin 3.5 Globulin 3.0 Albumin/Globulin Ratio 1.2
[2017-06-05] MEDS ORDERED: Hydrocortisone 1% Cream (30 GM) TOP PRN (21:40)
[2017-06-06] MEDS: Piperacill/Tazo 3.375gm in Dex 3.375 GM/50 ML BAG IVPB SCH ×2 (02:16→07:09)
[2017-06-06 05:15] LABS: BASO # 0.1 K/uL (0.0-0.2); BASO % 0.6 % (0.0-2.0); EOS # 0.2 K/uL (0.0-0.7); EOS % 2.7 % (0.0-4.0); LYMPH # 2.7 K/uL (1.0-4.3); LYMPH % 30.3 % (20.0-40.0); MEAN CELL VOLUME 86.9 fL (80.0-94.0); MEAN CORPUSCULAR HEMOGLOBIN 30.5 pg (27.0-31.0); MEAN CORPUSCULAR HGB CONC 35.1 g/dL (33.0-37.0); MEAN PLATELET VOLUME 7.1 fL (7.2-11.7); MONO # 0.7 K/uL (0.0-0.8); MONO % 7.9 % (0.0-10.0); NEUT # 5.2 K/uL (1.8-7.0); NEUT % 58.5 % (50.0-75.0); RBC 4.25 Mil/uL (4.40-5.90); RED CELL DISTRIBUTION WIDTH 13.6 % (11.5-14.5); WHITE BLOOD COUNT 8.8 K/uL (4.8-10.8)
[2017-06-06 05:28] LABS: ALB/GLOB RATIO 1.2 (1.0-2.1); ALBUMIN 3.7 g/dL (3.5-5.0); ALT/SGPT 49 U/L (21-72); AST/SGOT 29 U/L (17-59); BLOOD UREA NITROGEN 13 mg/dL (9-20); CALCIUM 8.2 mg/dl (8.6-10.4); GFR AFRICAN-AMERICAN > 60; GFR NON-AFRICAN AMERICAN > 60; MAGNESIUM 1.8 mg/dL (1.6-2.3)
[2017-06-06] MEDS: (Novolin R) Insulin Human Regular 100 units/ml vial SC SCH ×4 (08:13→21:36)
[2017-06-06] MEDS: Fluticasone Nasal 50 mcg/Spray NAS SCH ×2 (08:55→21:35)
--- NOTE | 2017-06-06 09:28 | CP.PCM.PN ---
Subjective - Date & Time of Evaluation Date of Evaluation: 06/06/17 Time of Evaluation: 07:00 - Subjective Subjective: Surgical Progress Note: Patient was seen and examined at bedside in the AM. No acute events overnight. Patient denies fever, nausea, vomiting, diarrhea or constipation. Objective - Vital Signs/Intake and Output Vital Signs (last 24 hours): Temp Pulse Resp BP Pulse Ox 97.8 F 75 20 145/84 97 06/06/17 08:46 06/06/17 08:46 06/06/17 08:46 06/06/17 08:46 06/06/17 08:46 Intake and Output: 06/06/17 06/06/17 06:59 18:59 Intake Total 1190 Balance 1190 - Medications Medications: Current Medications Albuterol/Ipratropium (Duoneb 3 Mg/0.5 Mg (3 Ml) Ud) 3 ml INH RQ6 PRN PRN Reason: SOB, Wheezing Dextrose (Dextrose 50% Inj) 0 ml IV STAT PRN; Protocol PRN Reason: Hypoglycemia Protocol Dextrose (Glutose 15) 15 gm PO ONCE PRN; Protocol PRN Reason: Hypoglycemia Protocol Fluticasone Propionate (Flonase) 1 spr LUISA RQ12 [facility] Last Admin: 06/06/17 08:55 Dose: 1 spr Glucagon (Glucagen Diagnostic Kit) 1 mg IM STAT PRN; Protocol PRN Reason: Hypoglycemia Protocol Heparin Sodium (Porcine) (Heparin) 5,000 units SC Q8 [facility] Last Admin: 06/06/17 06:04 Dose: 5,000 units Hydrocortisone (Cortizone 1% Cream) 1 gm TOP Q6H PRN PRN Reason: Itching / Pruritus Last Admin: 06/05/17 22:31 Dose: 1 applic Piperacillin Sod/Tazobactam Sod (Zosyn 3.375 Gm Iv Premix) 3.375 gm in 50 mls @ 100 mls/hr IVPB Q6H [facility] Last Admin: 06/06/17 07:09 Dose: 100 mls/hr Vancomycin HCl 1 gm/ Sodium (Chloride) 250 mls @ 166.6 mls/hr IVPB Q12H [facility] Last Admin: 06/06/17 06:04 Dose: 166.6 mls/hr Dextrose (Dextrose 5% In Water 1000 Ml) 1,000 mls @ 0 mls/hr IV .Q0M PRN; Protocol; Per Protocol PRN Reason: Hypoglycemia Protocol Insulin Human Regular (Novolin R) 0 unit SC ACHS [facility] PRN Reason: Protocol Last Admin: 06/06/17 08:13 Dose: Not Given Pantoprazole Sodium (Protonix Ec Tab) 40 mg PO DAILY [facility] Last Admin: 06/05/17 10:44 Dose: 40 mg Pneumococcal Polyvalent Vaccine (Pneumovax 23 Vaccine) 0.5 ml IM .ONCE ONE Stop: 06/06/17 10:01 Saccharomyces Boulardii (Florastor) 250 mg PO BID [facility] Last Admin: 06/05/17 17:47 Dose: 250 mg - Labs Labs: 06/06/17 05:12 06/06/17 05:12 PT 10.9 SECONDS (9.7-12.2) 06/03/17 16:45 INR 1.0 06/03/17 16:45 APTT 28 SECONDS (21-34) 06/03/17 16:45 - Constitutional Appears: No Acute Distress - Head Exam Head Exam: ATRAUMATIC, NORMAL INSPECTION - Eye Exam Eye Exam: Normal appearance - ENT Exam ENT Exam: Mucous Membranes Moist - Respiratory Exam Respiratory Exam: NORMAL BREATHING PATTERN - Cardiovascular Exam Cardiovascular Exam: +S1, +S2 - GI/Abdominal Exam Additional comments: obese - Extremities Exam Additional comments: bilateral dressing in place - Neurological Exam Neurological Exam: Alert, Awake, Oriented x3 - Psychiatric Exam Psychiatric exam: Normal Affect, Normal Mood - Skin Skin Exam: Dry, Intact, Normal Color, Warm Assessment and Plan - Assessment and Plan (Free Text) Assessment: 47 year old male morbidly obese with venous stasis - continue leg elevation - encourage OOB to chair/Amb - continue antibiotics - continue medical management - no surgical intervention at this time Tawana Scott PGY-1
[2017-06-06] MEDS ORDERED: Influenza Vaccine 60 mcg/0.5 mL SYR (4YR UP) IM ONE (10:00)
[2017-06-06] MEDS ORDERED: Pneumococcal 23-Valent Vaccine IM ONE (10:00)
[2017-06-06] MEDS: Saccharomyces Boulardi 250 mg Cap PO SCH ×2 (10:55→19:01)
[2017-06-06] MEDS: Pantoprazole 40 mg EC Tab PO SCH (10:55)
--- NOTE | 2017-06-06 11:38 | VASCLAB ---
PROCEDURE: Lower Extremity Venous Duplex Exam. HISTORY: Lower Ext. Edema/venous stasis cellulitis/ulceration Morbid obesity, venous insufficiency PRIORS: None. TECHNIQUE: Bilateral common femoral, femoral, popliteal and posterior tibial, peroneal and great saphenous veins were evaluated. Flow was assessed with color Doppler, compressibility, assessment of phasic flow and augmentation response. Report prepared by Kervin Blank, T FINDINGS: RIGHT: 1. Common Femoral Vein: 1.1. Compressibility - Fully compressible: Thrombus - None : Flow - Phasic: Augmentation -Normal: Reflux - Moderate. 2. Femoral Vein: 2.1. Compressibility - Fully compressible: Thrombus - None : Flow - Phasic: Augmentation -Normal: Reflux - . 3. Popliteal Vein: 3.1. Compressibility - Fully compressible: Thrombus - None : Flow - Phasic: Augmentation -Normal: Reflux - Moderate. 4. Posterior Tibial Vein: 4.1. Compressibility - : Thrombus - : Flow - : Augmentation -: Reflux - . 5. Peroneal Vein: 5.1. Compressibility - : Thrombus - : Flow - : Augmentation -: Reflux - . 6. Great Saphenous Vein: 6.1. Compressibility - Fully compressible: Thrombus - None: Flow - Phasic: Augmentation - : Reflux - Moderate. LEFT: 1. Common Femoral Vein: 1.1. Compressibility - Fully compressible: Thrombus - None: Flow - Phasic: Augmentation -Normal: Reflux - Moderate. 2. Femoral Vein: 2.1. Compressibility - Fully compressible: Thrombus - None: Flow - Phasic: Augmentation -Normal: Reflux - . 3. Popliteal Vein: 3.1. Compressibility - Fully compressible: Thrombus - None : Flow - Phasic: Augmentation -Normal: Reflux - Moderate. 4. Posterior Tibial Vein: 4.1. Compressibility - : Thrombus - : Flow - : Augmentation -: Reflux - . 5. Peroneal Vein: 5.1. Compressibility - : Thrombus - : Flow - : Augmentation -: Reflux - . 6. Great Saphenous Vein: 6.1. Compressibility - Fully compressible: Thrombus - None: Flow - Phasic: Augmentation - : Reflux - Moderate. OTHER FINDINGS: Right: None significant. Left: None significant. IMPRESSION: Right: The distal femoral was not clearly seen due to depth and swelling. The posterior tibial, peroneal and great saphenous vein below the knee were not evaluated due to compression dressings in place. No evidence of deep or superficial vein thrombosis for those clearly visualized veins of the right lower extremity. Moderate venous reflux was noted in the deep and superficial venous system. Left: The distal femoral was not clearly seen due to depth and swelling. The posterior tibial, peroneal and great saphenous vein below the knee were not evaluated due to compression dressings in place. No evidence of deep or superficial vein thrombosis for those clearly visualized veins of the left lower extremity. Moderate venous reflux was noted in the deep and superficial venous system.
--- NOTE | 2017-06-06 12:24 | CP.PCM.CON ---
History of Present Illness - History of Present Illness History of Present Illness: 47 M w ho came with chronic nfected leg ulcer/ venous stasis. Pt reports he has chronic leg ulcers and edema. b/l legs are getting larger and edematous. Area drains serous fluids. ID consulted for antibiotic management reports some improvement since IV rx started PMHx: chronic leg ulcers, chronic leg edema, chronic leg infections, DMII , obesity, FERNANDO PSHx: laser vein surgery on legs (5-7 years ago) Social Hx: Denies tobacco, alcohol, or illicit drug use. Works in [employer] at long term but is on disability. Lives by himself in [place] (Basement of 2 family home) Review of Systems - Constitutional Constitutional: As Per HPI - EENT Eyes: absent: As Per HPI, Blind Spots, Blurred Vision, Change in Vision, Decreased Night Vision, Diplopia, Discharge, Dry Eye, Exophthalmos, Floaters, Irritation, Itchy Eyes, Loss of Peripheral Vision, Pain, Photophobia, Requires Corrective Lenses, Sees Flashes, Spots in Vision, Tunnel Vision, Other Visual Disturbances, Loss of Vision, Other Ears: absent: As Per HPI, Decreased Hearing, Ear Discharge, Ear Pain, Tinnitus, Abnormal Hearing, Disequilibrium, Dizziness, Other Nose/Mouth/Throat: absent: As Per HPI, Epistaxis, Nasal Congestion, Nasal Discharge, Nasal Obstruction, Nasal Trauma, Nose Pain, Post Nasal Drip, Sinus Pain, Sinus Pressure, Bleeding Gums, Change in Voice, Dental Pain, Dry Mouth, Dysphagia, Halitosis, Hoarsness, Lip Swelling, Mouth Lesions, Mouth Pain, Odynophagia, Sore Throat, Throat Swelling, Tongue Swelling, Facial Pain, Neck Pain, Neck Mass, Other - Cardiovascular Cardiovascular: As Per HPI - Respiratory Respiratory: absent: As Per HPI, Cough, Dyspnea, Hemoptysis, Dyspnea on Exertion , Wheezing, Snoring, Stridor, Pain on Inspiration, Chest Congestion, Excessive Mucous Production, Change in Mucous Color, Pain with Coughing, Other - Gastrointestinal Gastrointestinal: absent: As Per HPI, Abdominal Pain, Belching, Bloating, Change in Bowel Habits, Change in Stool Character, Coffee Ground Emesis, Constipation, Cramping, Diarrhea, Dyspepsia, Dysphagia, Early Satiety, Excessive Flatus, Fecal Incontinence, Heartburn, Hematemesis, Hematochezia, Loose Stools, Melena, Nausea, Odynophagia, Temesmus, Vomiting, Other - Genitourinary Genitourinary: absent: As Per HPI, Change in Urinary Stream, Difficulty Urinating, Dysuria, Flank Pain, Hematuria, Pyuria, Nocturia, Urinary Incontinence, Urinary Frequency, Urinary Hesitance, Urinary Urgency, Voiding Freq/Small Amts, Freq UTI, Hx Renal/Bladder Calculi, Hx /Renal Surgery, Bladder Distension, Other - Musculoskeletal Musculoskeletal: As Per HPI - Integumentary Integumentary: As Per HPI, Skin Pain, Wounds - Neurological Neurological: absent: As Per HPI, Abnormal Gait, Abnormal Hearing, Abnormal Movements, Abnormal Speech, Behavioral Changes, Burning Sensations, Confusion, Convulsions, Disequilibrium, Dizziness, Numbness, Focal Weakness, Frequent Falls , Headaches, Lack of Coordination, Loss of Vision, Memory Loss, Paresthesias, Radicular Pain, Restless Legs, Sensory Deficit, Syncope, Tingling, Tremor, Vertigo, Weakness, Other Visual Disturbances, Other - Psychiatric Psychiatric: absent: As Per HPI, Abnormal Sleep Pattern, Anhedonia, Anxiety, Auditory Hallucinations, Behavioral Changes, Change in Appetite, Change in Libido, Confusion, Depression, Difficulty Concentrating, Hallucinations, Homicidal Ideation, Hopelessness, Irritability, Memory Loss, Mood Swings, Panic Attacks, Paranoia, Suicidal Ideation, Visual Hallucinations, Tactile Hallucinations, Other - Endocrine Endocrine: absent: As Per HPI, Change in Body Appearance, Change in Libido, Cold Intolorance, Deepening of Voice, Excessive Sweating, Fatigue, Flushing, Heat Intolorance, Increase in Ring/Shoe/Hat Size, Palpitations, Polydipsia, Polyphagia, Polyuria, Other - Hematologic/Lymphatic Hematologic: absent: As Per HPI, Easy Bleeding, Easy Bruising, Lymphadenopathy, Other Past Patient History - Past Medical History & Family History Past Medical History?: Yes - Past Social History Smoking Status: Never Smoked - CARDIAC Hx Peripheral Edema: Yes - PULMONARY Hx Sleep Apnea: Yes - ENDOCRINE/METABOLIC Hx Endocrine Disorders: Yes Hx Diabetes Mellitus Type 2: Yes - MUSCULOSKELETAL/RHEUMATOLOGICAL Hx Falls: No - PSYCHIATRIC Hx Substance Use: No - SURGICAL HISTORY Hx Surgeries: Yes Other/Comment: laser procedures on both legs Meds Allergies/Adverse Reactions: Allergies Allergy/AdvReac Type Severity Reaction Status Date / Time No Known Allergies Allergy Verified 06/03/17 14:53 - Medications Medications: Current Medications Albuterol/Ipratropium (Duoneb 3 Mg/0.5 Mg (3 Ml) Ud) 3 ml INH RQ6 PRN PRN Reason: SOB, Wheezing Dextrose (Dextrose 50% Inj) 0 ml IV STAT PRN; Protocol PRN Reason: Hypoglycemia Protocol Dextrose (Glutose 15) 15 gm PO ONCE PRN; Protocol PRN Reason: Hypoglycemia Protocol Fluticasone Propionate (Flonase) 1 spr LUISA RQ12 [facility] Last Admin: 06/06/17 08:55 Dose: 1 spr Glucagon (Glucagen Diagnostic Kit) 1 mg IM STAT PRN; Protocol PRN Reason: Hypoglycemia Protocol Heparin Sodium (Porcine) (Heparin) 5,000 units SC Q8 [facility] Last Admin: 06/06/17 06:04 Dose: 5,000 units Hydrocortisone (Cortizone 1% Cream) 1 gm TOP Q6H PRN PRN Reason: Itching / Pruritus Last Admin: 06/05/17 22:31 Dose: 1 applic Dextrose (Dextrose 5% In Water 1000 Ml) 1,000 mls @ 0 mls/hr IV .Q0M PRN; Protocol; Per Protocol PRN Reason: Hypoglycemia Protocol Vancomycin HCl 2 gm/ Sodium (Chloride) 500 mls @ 166.667 mls/hr IVPB Q12H [facility] Insulin Human Regular (Novolin R) 0 unit SC ACHS [facility] PRN Reason: Protocol Last Admin: 06/06/17 12:15 Dose: Not Given Pantoprazole Sodium (Protonix Ec Tab) 40 mg PO DAILY [facility] Last Admin: 06/06/17 10:55 Dose: 40 mg Saccharomyces Boulardii (Florastor) 250 mg PO BID [facility] Last Admin: 06/06/17 10:55 Dose: 250 mg Physical Exam - Constitutional Appears: Non-toxic, Chronically Ill - Head Exam Head Exam: NORMOCEPHALIC - Eye Exam Eye Exam: PERRL - ENT Exam ENT Exam: Mucous Membranes Dry, Normal External Ear Exam - Neck Exam Neck exam: Negative for: Lymphadenopathy - Respiratory Exam Respiratory Exam: Decreased Breath Sounds, Clear to Auscultation Bilateral - Cardiovascular Exam Cardiovascular Exam: REGULAR RHYTHM, +S1, +S2 - GI/Abdominal Exam GI & Abdominal Exam: Diminished Bowel Sounds, Soft. absent: Tenderness - Rectal Exam Rectal Exam: Deferred - Exam Exam: NORMAL INSPECTION - Extremities Exam Extremities exam: Positive for: pedal edema, tenderness, pedal pulses present. Negative for: calf tenderness, normal inspection Additional comments: swelling and skin changes bilat lower extrem consistent with cellulitis/ venous stasis dermatitis/ phlebitis - Back Exam Back exam: absent: CVA tenderness (L), CVA tenderness (R) - Neurological Exam Neurological exam: Alert, CN II-XII Intact, Oriented x3, Reflexes Normal - Psychiatric Exam Psychiatric exam: Normal Mood - Skin Skin Exam: Dry Results - Vital Signs Recent Vital Signs: Last Vital Signs Temp 97.8 F 06/06/17 08:46 Pulse 75 06/06/17 08:46 Resp 20 06/06/17 08:46 BP 145/84 06/06/17 08:46 Pulse Ox 97 06/06/17 08:46 - Labs Result Diagrams: 06/06/17 05:12 06/06/17 05:12 Labs: Laboratory Results - last 24 hr 06/05/17 06/05/17 06/06/17 17:08 21:28 05:12 WBC RBC Hgb Hct MCV MCH MCHC RDW Plt Count MPV Neut % (Auto) Lymph % (Auto) [place] % (Auto) Eos % (Auto) Baso % (Auto) Neut # Lymph # [place] # Eos # Baso # Sodium 130 L Potassium 3.8 Chloride 98 Carbon Dioxide 24 Anion Gap 11 BUN 13 Creatinine 0.8 Est GFR ( Amer) > 60 Est GFR (Non-Af Amer) > 60 POC Glucose (mg/dL) 110 116 H Random Glucose 137 H Calcium 8.2 L Phosphorus 3.8 Magnesium 1.8 Total Bilirubin 0.5 AST 29 ALT 49 Alkaline Phosphatase 72 Total Protein 6.7 Albumin 3.7 Globulin 3.0 Albumin/Globulin Ratio 1.2 Vancomycin Trough 06/06/17 06/06/17 06/06/17 05:12 05:12 07:10 WBC 8.8 RBC 4.25 L Hgb 13.0 Hct 36.9 MCV 86.9 MCH 30.5 MCHC 35.1 RDW 13.6 Plt Count 353 MPV 7.1 L Neut % (Auto) 58.5 Lymph % (Auto) 30.3 [place] % (Auto) 7.9 Eos % (Auto) 2.7 Baso % (Auto) 0.6 Neut # 5.2 Lymph # 2.7 [place] # 0.7 Eos # 0.2 Baso # 0.1 Sodium Potassium Chloride Carbon Dioxide Anion Gap BUN Creatinine Est GFR ( Amer) Est GFR (Non-Af Amer) POC Glucose (mg/dL) 119 H Random Glucose Calcium Phosphorus Magnesium Total Bilirubin AST ALT Alkaline Phosphatase Total Protein Albumin Globulin Albumin/Globulin Ratio Vancomycin Trough 7.7 06/06/17 11:24 WBC RBC Hgb Hct MCV MCH MCHC RDW Plt Count MPV Neut % (Auto) Lymph % (Auto) [place] % (Auto) Eos % (Auto) Baso % (Auto) Neut # Lymph # [place] # Eos # Baso # Sodium Potassium Chloride Carbon Dioxide Anion Gap BUN Creatinine Est GFR ( Amer) Est GFR (Non-Af Amer) POC Glucose (mg/dL) 135 H Random Glucose Calcium Phosphorus Magnesium Total Bilirubin AST ALT Alkaline Phosphatase Total Protein Albumin Globulin Albumin/Globulin Ratio Vancomycin Trough Assessment & Plan (1) Cellulitis Status: Acute (2) Bilateral edema of lower extremity Status: Acute (3) Chronic ulcer of right leg Status: Acute (4) Lymphedema of both lower extremities Status: Acute (5) Morbid obesity Status: Acute
[2017-06-06] MEDS ORDERED: Vancomycin 2 GM in Sodium Chloride 0.9% 500 ML IVPB SCH (12:30)
[2017-06-06] MEDS ORDERED: Perflutren Lipid Microsphere 1.5 ML SUS IV ONE (12:34)
--- NOTE | 2017-06-06 18:10 | CP.PCM.PN ---
Subjective - Date & Time of Evaluation Date of Evaluation: 06/06/17 Time of Evaluation: 08:30 - Subjective Subjective: The patient was seen and examined this morning. He states that he was able to sleep okay last night. He denies shortness of breath, fever, chills, palpitations, and hemoptysis but admits to cough and green sputum production. He also complains of occasional pleuritic chest pain and fatigue. He denies any trouble breathing today. He states that his appetite is fine and that he is having no trouble urinating and defecating. Vital signs: Temperature: 97.8 F Pulse: 75 bpm Respiratory rate: 20 Blood pressure: 145/84 mm Hg Pulse oximetry: 97% on RA Physical examination: Cardiovascular: RRR, +s1, +s2, no murmurs, rubs, or gallops Pulmonary: lungs clear to auscultation bilaterally, normal breathing pattern, no rales or rhonchi Labs: Microbiology: Vancomycin trough 7.7 Left leg wound culture MRSA + Assessment & Plan: Intermittent shortness of breath * Likely multifactorial etiology due to obesity hypoventilation syndrome (BMI 62 ), obstructive sleep apnea, and some degree of CHF * Continue Flonase and Duonebs prn * F/u echocardiogram Objective - Vital Signs/Intake and Output Vital Signs (last 24 hours): Temp Pulse Resp BP Pulse Ox 97.8 F 80 20 136/86 95 06/06/17 16:37 06/06/17 16:37 06/06/17 16:37 06/06/17 16:37 06/06/17 16:37 Intake and Output: 06/06/17 06/06/17 06:59 18:59 Intake Total 1190 Balance 1190 - Medications Medications: Current Medications Albuterol/Ipratropium (Duoneb 3 Mg/0.5 Mg (3 Ml) Ud) 3 ml INH RQ6 PRN PRN Reason: SOB, Wheezing Dextrose (Dextrose 50% Inj) 0 ml IV STAT PRN; Protocol PRN Reason: Hypoglycemia Protocol Dextrose (Glutose 15) 15 gm PO ONCE PRN; Protocol PRN Reason: Hypoglycemia Protocol Fluticasone Propionate (Flonase) 1 spr LUISA RQ12 [facility] Last Admin: 06/06/17 08:55 Dose: 1 spr Glucagon (Glucagen Diagnostic Kit) 1 mg IM STAT PRN; Protocol PRN Reason: Hypoglycemia Protocol Heparin Sodium (Porcine) (Heparin) 5,000 units SC Q8 [facility] Last Admin: 06/06/17 14:09 Dose: 5,000 units Hydrocortisone (Cortizone 1% Cream) 1 gm TOP Q6H PRN PRN Reason: Itching / Pruritus Last Admin: 06/05/17 22:31 Dose: 1 applic Dextrose (Dextrose 5% In Water 1000 Ml) 1,000 mls @ 0 mls/hr IV .Q0M PRN; Protocol; Per Protocol PRN Reason: Hypoglycemia Protocol Vancomycin HCl 2 gm/ Sodium (Chloride) 500 mls @ 166.667 mls/hr IVPB Q12H [facility] Insulin Human Regular (Novolin R) 0 unit SC ACHS [facility] PRN Reason: Protocol Last Admin: 06/06/17 17:40 Dose: Not Given Pantoprazole Sodium (Protonix Ec Tab) 40 mg PO DAILY [facility] Last Admin: 06/06/17 10:55 Dose: 40 mg Saccharomyces Boulardii (Florastor) 250 mg PO BID [facility] Last Admin: 06/06/17 10:55 Dose: 250 mg - Labs Labs: 06/06/17 05:12 06/06/17 05:12 PT 10.9 SECONDS (9.7-12.2) 06/03/17 16:45 INR 1.0 06/03/17 16:45 APTT 28 SECONDS (21-34) 06/03/17 16:45
--- NOTE | 2017-06-06 19:31 | CP.PCM.PN ---
<Kevin Veliz - Last Filed: 06/06/17 19:29> Subjective - Date & Time of Evaluation Date of Evaluation: 06/06/17 Time of Evaluation: 10:00 - Subjective Subjective: Patient has been seen and examined. No overnight events reported. Reports B/L lower Ext. pain. Currently no SOB or chest pain. Objective - Vital Signs/Intake and Output Vital Signs (last 24 hours): Temp Pulse Resp BP Pulse Ox 97.8 F 80 20 136/86 95 06/06/17 16:37 06/06/17 16:37 06/06/17 16:37 06/06/17 16:37 06/06/17 16:37 - Medications Medications: Current Medications Albuterol/Ipratropium (Duoneb 3 Mg/0.5 Mg (3 Ml) Ud) 3 ml INH RQ6 PRN PRN Reason: SOB, Wheezing Dextrose (Dextrose 50% Inj) 0 ml IV STAT PRN; Protocol PRN Reason: Hypoglycemia Protocol Dextrose (Glutose 15) 15 gm PO ONCE PRN; Protocol PRN Reason: Hypoglycemia Protocol Fluticasone Propionate (Flonase) 1 spr LUISA RQ12 [facility] Last Admin: 06/06/17 08:55 Dose: 1 spr Glucagon (Glucagen Diagnostic Kit) 1 mg IM STAT PRN; Protocol PRN Reason: Hypoglycemia Protocol Heparin Sodium (Porcine) (Heparin) 5,000 units SC Q8 [facility] Last Admin: 06/06/17 14:09 Dose: 5,000 units Hydrocortisone (Cortizone 1% Cream) 1 gm TOP Q6H PRN PRN Reason: Itching / Pruritus Last Admin: 06/05/17 22:31 Dose: 1 applic Dextrose (Dextrose 5% In Water 1000 Ml) 1,000 mls @ 0 mls/hr IV .Q0M PRN; Protocol; Per Protocol PRN Reason: Hypoglycemia Protocol Vancomycin HCl 2 gm/ Sodium (Chloride) 500 mls @ 166.667 mls/hr IVPB Q12H [facility] Insulin Human Regular (Novolin R) 0 unit SC ACHS [facility] PRN Reason: Protocol Last Admin: 06/06/17 17:40 Dose: Not Given Pantoprazole Sodium (Protonix Ec Tab) 40 mg PO DAILY [facility] Last Admin: 06/06/17 10:55 Dose: 40 mg Saccharomyces Boulardii (Florastor) 250 mg PO BID [facility] Last Admin: 06/06/17 19:01 Dose: 250 mg - Labs Labs: 06/06/17 05:12 06/06/17 05:12 PT 10.9 SECONDS (9.7-12.2) 06/03/17 16:45 INR 1.0 06/03/17 16:45 APTT 28 SECONDS (21-34) 06/03/17 16:45 - Additional Findings Additional findings: - Constitutional Additional comments: Morbidly Obese - Head Exam Head Exam: ATRAUMATIC, NORMAL INSPECTION, NORMOCEPHALIC - Eye Exam Eye Exam: Normal appearance. absent: Scleral icterus - ENT Exam ENT Exam: Mucous Membranes Moist - Neck Exam Neck exam: Negative for: Lymphadenopathy - Respiratory Exam Respiratory Exam: Accessory Muscle Use, Clear to Auscultation Bilateral. absent : Rales, Rhonchi, Wheezes - Cardiovascular Exam Cardiovascular Exam: RRR, +S1, +S2 - GI/Abdominal Exam GI & Abdominal Exam: Soft, non-tenderner - Extremities Exam Extremities exam: Positive for: pedal edema (+3), tenderness. Negative for: normal inspection - Neurological Exam Neurological exam: Alert, Oriented x3 - Psychiatric Exam Psychiatric exam: Normal Affect, Normal Mood - Skin Additional comments: R leg - +3 Edema erythematous, and draining. Currently Wrapped L leg - +3 edema, 1x1cm ulcer on the left lower ext. Currently wrapped Assessment and Plan - Assessment and Plan (Free Text) Assessment: 47 year old male with PMHx of chronic b/l leg edema/infections/ulcers (since 2004), and DMII presents with b/l lower ext. cellulitis, b/l lower ext. edema, and left lower ext. ulcer. Plan: Lower Ext. Venous Stasis Ulcer/Dermatitis, Cellulitis, Phlebitis, Edema 06/05: Day 2 of IV Vanc and Zosyn, blood cultures negative so far. continue UNNA boots. complications likely 2/2 Metabolic Syndrome Vascular consult - Dr. Gautam, help appreciated No surgical intervention at this time. ID consulted - Dr. Rizo, help appreciated Podiatry consulted - Dr. Meza, help appreciated PT/OT Venous Dopplers showed no DVT. Arterial Dopplers - PENDING Tomorrow IV Vanc 1gram Q12H changed to 2grams Q12 due to low Vanc Trough Repeat Vanc Trough on Tuesday06/08/18 DC'd IV Zosyn 3.375 Q6H Blood Cultures - NEGATIVE Left Leg Wound Cultures - POSITIVE for MRSA. Started Contact Precautions UNNA boots to be put on tomorow. Wound Care DM II 06/05: continue current management. ISS - Medium HgBA1c: 6.9 Lipid Panel: Triglycerides: 173, Cholesterol: 184, LDL: 112, HDL: 41 Seasonal Allergies/Intermitent SOB Likely 2/2 to Obesity Hyperventilation syndrome vs CHF 06/05: Echo: PENDING READ Pulm consulted, Dr. Damon, help appreciated Pro-BNP: 38.3 Flonase Duonebs PRN Morbid Obesity Director Of Clinical Trials Referral Proph Heparin 5000 u sc q8h Protonix 40 mg po daily Florastor Heart Healthy Diet Patient discussed with Attending Kevin Veliz - PGY1 <Chavez Bright - Last Filed: 06/06/17 20:50> Objective - Vital Signs/Intake and Output Vital Signs (last 24 hours): Temp Pulse Resp BP Pulse Ox 97.8 F 80 20 136/86 95 06/06/17 16:37 06/06/17 16:37 06/06/17 16:37 06/06/17 16:37 06/06/17 16:37 - Medications Medications: Current Medications Albuterol/Ipratropium (Duoneb 3 Mg/0.5 Mg (3 Ml) Ud) 3 ml INH RQ6 PRN PRN Reason: SOB, Wheezing Dextrose (Dextrose 50% Inj) 0 ml IV STAT PRN; Protocol PRN Reason: Hypoglycemia Protocol Dextrose (Glutose 15) 15 gm PO ONCE PRN; Protocol PRN Reason: Hypoglycemia Protocol Fluticasone Propionate (Flonase) 1 spr LUISA RQ12 [facility] Last Admin: 06/06/17 08:55 Dose: 1 spr Glucagon (Glucagen Diagnostic Kit) 1 mg IM STAT PRN; Protocol PRN Reason: Hypoglycemia Protocol Heparin Sodium (Porcine) (Heparin) 5,000 units SC Q8 [facility] Last Admin: 06/06/17 14:09 Dose: 5,000 units Hydrocortisone (Cortizone 1% Cream) 1 gm TOP Q6H PRN PRN Reason: Itching / Pruritus Last Admin: 06/05/17 22:31 Dose: 1 applic Dextrose (Dextrose 5% In Water 1000 Ml) 1,000 mls @ 0 mls/hr IV .Q0M PRN; Protocol; Per Protocol PRN Reason: Hypoglycemia Protocol Vancomycin HCl 2 gm/ Sodium (Chloride) 500 mls @ 166.667 mls/hr IVPB Q12H [facility] Insulin Human Regular (Novolin R) 0 unit SC ACHS [facility] PRN Reason: Protocol Last Admin: 06/06/17 17:40 Dose: Not Given Pantoprazole Sodium (Protonix Ec Tab) 40 mg PO DAILY [facility] Last Admin: 06/06/17 10:55 Dose: 40 mg Saccharomyces Boulardii (Florastor) 250 mg PO BID [facility] Last Admin: 06/06/17 19:01 Dose: 250 mg - Labs Labs: 06/06/17 05:12 06/06/17 05:12 PT 10.9 SECONDS (9.7-12.2) 06/03/17 16:45 INR 1.0 06/03/17 16:45 APTT 28 SECONDS (21-34) 06/03/17 16:45 Attending/Attestation - Attestation I have personally seen and examined this patient.: Yes I have fully participated in the care of the patient.: Yes I have reviewed all pertinent clinical information, including history, physical exam and plan: Yes Notes (Text): 06/06/17 20:39 Hospitalist Progress Note Patient was seen and examined shortly after resident. Assessment and Plan and Exam were thoroughly Also on Exam: Extremities: Left Lateral Lower Leg there is an irregular ulcer 1.5 by 1.0 cm. ON the Right Lower Leg there were no ulcers noted but areas of macerated skin and signs of venous insufficiency. Pulses in the lower extremities could not be palpated however capillary refill was 2 seconds and NO coolness was noted. Assessments: 1). Bilateral LE Cellulitis/Edema/Left Leg Ulcer Wound care was consulted and I spoke with Nurse William Marion who recommended reapplication of Unna Boots Bilaterally. Therefore Podiaty Dr. Ro Meza was consulted. Left Lateral Lower Leg Wound Culture came back positive for MRSA therefore placed on Contact Precautions, Vancomycin was increased to 2 gm IV Q12H (as trough was 7.7 and goal should be 15 and repeat Trough has been ordered for 06/08 at 5:30 AM), Zosyn was disontinued, and ID Dr. Nestor Weaver was consulted for further recommendations Venous Duplex of Bilateral LE was negative for DVT Arterial Duplex of Bilateral LE was limited due to bandages/dressings therefore I removed them and spoke with Charge Nurse Marily who called down to Vascular Lab to repeat the Arterial Duplex F/U Vascular Surgeon Dr. Gautam recommendations 2). Hx DM 2 RISS ACHS Hypoglycemia Protocol 3). Complaints of Dyspnea on Exertion/Orthopnea F/U 2D Echo F/U Gastroenterology Nurse Practitioner Dr. Damon recommendations Duoneb, Fluticasone 4). Prophylaxis Heparin, Florastor, Florastor Medicine Team: speak with PT to see if ALEXANDER is recommended and if so then arrange with Perfumer. Chavez Bright D.O.
[2017-06-06] MEDS: Vancomycin 2 GM in Sodium Chloride 0.9% 500 ML IVPB SCH (21:22)
--- NOTE | 2017-06-06 23:54 | CARD ---
APPROVED REPORT EXAM: Two-dimensional and M-mode echocardiogram with Doppler, color Doppler with contrast. Other Information Quality : GoodRhythm : INDICATION Dyspnea Peripheral Edema DEFINITY CONTRAST USED, RISK FACTORS Obesity Diabetes 2D DIMENSIONS IVSd1.1 (0.7-1.1cm)LVDd5.4 (3.9-5.9cm) PWd0.8 (0.7-1.1cm)LVDs4.2 (2.5-4.0cm) FS (%) 22.5 %LVEF (%)44.8 (>50%) M-Mode DIMENSIONS Left Atrium (MM)3.46 (2.5-4.0cm)Aortic Root3.73 (2.2-3.7cm) Aortic Cusp Exc.2.19 (1.5-2.0cm) Mitral Valve MV E Lvzrdzuq17.1cm/sMV A Maqvgnep41.1cm/sE/A ratio0.8 TDI E/Lateral E'0.0E/Medial E'0.0 Tricuspid Valve TR Peak [id number]/sTR Peak Gr.[id number] LEFT VENTRICLE The left ventricle is normal size. There is normal left ventricular wall thickness. Left ventricle systolic function is mildly impaired. The Ejection Fraction is 40-45%. There is global hypokinesis of the left ventricle. Transmitral Doppler flow pattern is abnormal.Grade I-abnormal relaxation pattern. No left ventricle thrombus noted on this study. RIGHT VENTRICLE The right ventricle is normal size. The right ventricular systolic function is normal. ATRIA The left atrium size is normal. The right atrium size is normal. AORTIC VALVE The aortic valve is mildly thickened. The aortic valve is probably trileaflet. No aortic regurgitation is present. There is no aortic valvular stenosis. There is no aortic valvular vegetation. MITRAL VALVE Mitral annular calcification is mild. There is no evidence of mitral valve prolapse. There is no mitral valve stenosis. Mitral regurgitation is mild. TRICUSPID VALVE The tricuspid valve is normal in structure. There is mild tricuspid regurgitation. Right ventricular systolic pressure is estimated at 30-40 mmHg. There is no pulmonary hypertension. There is no tricuspid valve prolapse or vegetation. There is no tricuspid valve stenosis. PULMONIC VALVE The pulmonic valve is not well visualized. There is no pulmonic valvular regurgitation. GREAT VESSELS The aortic root is normal in size. The IVC was not visualized. <Conclusion> The left ventricle is normal size. Left ventricle systolic function is mildly impaired. The Ejection Fraction is 40-45%. There is global hypokinesis of the left ventricle. Transmitral Doppler flow pattern is abnormal.Grade I-abnormal relaxation pattern. The right ventricle is normal size. The right ventricular systolic function is normal. The left atrium size is normal. The right atrium size is normal. Mitral regurgitation is mild. There is mild tricuspid regurgitation.
[2017-06-07] MEDS ORDERED: Morphine 4 MG/ML VIAL IV ONE (01:32)
[2017-06-07] MEDS: Vancomycin 2 GM in Sodium Chloride 0.9% 500 ML IVPB SCH ×2 (06:12→19:14)
[2017-06-07] MEDS: (Novolin R) Insulin Human Regular 100 units/ml vial SC SCH ×4 (07:34→21:22)
[2017-06-07 08:24] LABS: BASO # 0.1 K/uL (0.0-0.2); BASO % 0.8 % (0.0-2.0); EOS # 0.2 K/uL (0.0-0.7); HEMOGLOBIN 12.7 g/dL (12.0-18.0); LYMPH # 1.6 K/uL (1.0-4.3); LYMPH % 14.4 % (20.0-40.0); MEAN CELL VOLUME 87.7 fL (80.0-94.0); MEAN CORPUSCULAR HEMOGLOBIN 30.3 pg (27.0-31.0); MEAN CORPUSCULAR HGB CONC 34.5 g/dL (33.0-37.0); MEAN PLATELET VOLUME 7.3 fL (7.2-11.7); MONO # 0.9 K/uL (0.0-0.8); MONO % 8.2 % (0.0-10.0); NEUT # 8.1 K/uL (1.8-7.0); NEUT % 74.6 % (50.0-75.0); NRBC % 0.1 % (0.0-2.0); RBC 4.18 Mil/uL (4.40-5.90); RED CELL DISTRIBUTION WIDTH 13.6 % (11.5-14.5); WHITE BLOOD COUNT 10.9 K/uL (4.8-10.8)
[2017-06-07] MEDS: Fluticasone Nasal 50 mcg/Spray NAS SCH ×2 (08:24→19:18)
[2017-06-07 09:01] LABS: ALB/GLOB RATIO 1.2 (1.0-2.1); ALBUMIN 3.7 g/dL (3.5-5.0); ALT/SGPT 61 U/L (21-72); AST/SGOT 37 U/L (17-59); BLOOD UREA NITROGEN 14 mg/dL (9-20); GFR AFRICAN-AMERICAN > 60; GFR NON-AFRICAN AMERICAN > 60; MAGNESIUM 1.8 mg/dL (1.6-2.3)
[2017-06-07] MEDS: Pantoprazole 40 mg EC Tab PO SCH (09:24)
[2017-06-07] MEDS: Saccharomyces Boulardi 250 mg Cap PO SCH ×2 (09:24→17:24)
--- NOTE | 2017-06-07 11:15 | CP.PCM.PN ---
Subjective - Date & Time of Evaluation Date of Evaluation: 06/07/17 Time of Evaluation: 07:00 - Subjective Subjective: improving less pain and swelling no fever Objective - Vital Signs/Intake and Output Vital Signs (last 24 hours): Temp Pulse Resp BP Pulse Ox 98.2 F 81 20 103/66 95 06/07/17 08:10 06/07/17 08:10 06/07/17 08:10 06/07/17 08:10 06/07/17 00:05 - Medications Medications: Current Medications Albuterol/Ipratropium (Duoneb 3 Mg/0.5 Mg (3 Ml) Ud) 3 ml INH RQ6 PRN PRN Reason: SOB, Wheezing Aspirin (Aspirin Chewable) 81 mg PO DAILY [facility] Dextrose (Dextrose 50% Inj) 0 ml IV STAT PRN; Protocol PRN Reason: Hypoglycemia Protocol Dextrose (Glutose 15) 15 gm PO ONCE PRN; Protocol PRN Reason: Hypoglycemia Protocol Fluticasone Propionate (Flonase) 1 spr LUISA RQ12 [facility] Last Admin: 06/07/17 08:24 Dose: 1 spr Glucagon (Glucagen Diagnostic Kit) 1 mg IM STAT PRN; Protocol PRN Reason: Hypoglycemia Protocol Heparin Sodium (Porcine) (Heparin) 5,000 units SC Q8 [facility] Last Admin: 06/07/17 06:14 Dose: 5,000 units Hydrocortisone (Cortizone 1% Cream) 1 gm TOP Q6H PRN PRN Reason: Itching / Pruritus Last Admin: 06/05/17 22:31 Dose: 1 applic Dextrose (Dextrose 5% In Water 1000 Ml) 1,000 mls @ 0 mls/hr IV .Q0M PRN; Protocol; Per Protocol PRN Reason: Hypoglycemia Protocol Vancomycin HCl 2 gm/ Sodium (Chloride) 500 mls @ 166.667 mls/hr IVPB Q12H [facility] Last Admin: 06/07/17 06:12 Dose: 166.667 mls/hr Insulin Human Regular (Novolin R) 0 unit SC ACHS [facility] PRN Reason: Protocol Last Admin: 06/07/17 07:34 Dose: Not Given Lisinopril (Zestril) 5 mg PO DAILY [facility] Pantoprazole Sodium (Protonix Ec Tab) 40 mg PO DAILY [facility] Last Admin: 06/07/17 09:24 Dose: 40 mg Saccharomyces Boulardii (Florastor) 250 mg PO BID [facility] Last Admin: 06/07/17 09:24 Dose: 250 mg - Labs Labs: 06/07/17 08:16 06/07/17 08:16 PT 10.9 SECONDS (9.7-12.2) 06/03/17 16:45 INR 1.0 06/03/17 16:45 APTT 28 SECONDS (21-34) 06/03/17 16:45 - Constitutional Appears: Non-toxic, Chronically Ill - Head Exam Head Exam: NORMOCEPHALIC - Eye Exam Eye Exam: PERRL - ENT Exam ENT Exam: Mucous Membranes Dry - Neck Exam Neck Exam: absent: Lymphadenopathy - Respiratory Exam Respiratory Exam: Decreased Breath Sounds - Cardiovascular Exam Cardiovascular Exam: REGULAR RHYTHM - GI/Abdominal Exam GI & Abdominal Exam: Distended - Rectal Exam Rectal Exam: Deferred - Exam Exam: NORMAL INSPECTION Assessment and Plan (1) Cellulitis Status: Acute (2) Bilateral edema of lower extremity Status: Acute (3) Chronic ulcer of right leg Status: Acute (4) Lymphedema of both lower extremities Status: Acute (5) Morbid obesity Status: Acute
--- NOTE | 2017-06-07 15:48 | CP.PCM.CON ---
History of Present Illness - History of Present Illness History of Present Illness: Consultation for evaulation of new onset CHF HPI Past Patient History - Past Medical History & Family History Past Medical History?: Yes - Past Social History Smoking Status: Never Smoked - CARDIAC Hx Peripheral Edema: Yes - PULMONARY Hx Sleep Apnea: Yes - ENDOCRINE/METABOLIC Hx Diabetes Mellitus Type 2: Yes - MUSCULOSKELETAL/RHEUMATOLOGICAL Hx Arthritis: Yes (ANKLES) - PSYCHIATRIC Hx Substance Use: No - SURGICAL HISTORY Hx Surgeries: Yes Other/Comment: laser procedures on both legs Meds Allergies/Adverse Reactions: Allergies Allergy/AdvReac Type Severity Reaction Status Date / Time No Known Allergies Allergy Verified 06/03/17 14:53 - Medications Medications: Current Medications Albuterol/Ipratropium (Duoneb 3 Mg/0.5 Mg (3 Ml) Ud) 3 ml INH RQ6 PRN PRN Reason: SOB, Wheezing Aspirin (Aspirin Chewable) 81 mg PO DAILY [facility] Dextrose (Dextrose 50% Inj) 0 ml IV STAT PRN; Protocol PRN Reason: Hypoglycemia Protocol Dextrose (Glutose 15) 15 gm PO ONCE PRN; Protocol PRN Reason: Hypoglycemia Protocol Fluticasone Propionate (Flonase) 1 spr LUISA RQ12 [facility] Last Admin: 06/07/17 08:24 Dose: 1 spr Glucagon (Glucagen Diagnostic Kit) 1 mg IM STAT PRN; Protocol PRN Reason: Hypoglycemia Protocol Heparin Sodium (Porcine) (Heparin) 5,000 units SC Q8 [facility] Last Admin: 06/07/17 13:50 Dose: 5,000 units Hydrocortisone (Cortizone 1% Cream) 1 gm TOP Q6H PRN PRN Reason: Itching / Pruritus Last Admin: 06/05/17 22:31 Dose: 1 applic Dextrose (Dextrose 5% In Water 1000 Ml) 1,000 mls @ 0 mls/hr IV .Q0M PRN; Protocol; Per Protocol PRN Reason: Hypoglycemia Protocol Vancomycin HCl 2 gm/ Sodium (Chloride) 500 mls @ 166.667 mls/hr IVPB Q12H [facility] Last Admin: 06/07/17 06:12 Dose: 166.667 mls/hr Insulin Human Regular (Novolin R) 0 unit SC ACHS [facility] PRN Reason: Protocol Last Admin: 06/07/17 12:08 Dose: Not Given Lisinopril (Zestril) 5 mg PO DAILY [facility] Last Admin: 06/07/17 11:22 Dose: 5 mg Pantoprazole Sodium (Protonix Ec Tab) 40 mg PO DAILY [facility] Last Admin: 06/07/17 09:24 Dose: 40 mg Saccharomyces Boulardii (Florastor) 250 mg PO BID [facility] Last Admin: 06/07/17 09:24 Dose: 250 mg Physical Exam - Constitutional Appears: Well - Head Exam Head Exam: ATRAUMATIC, NORMAL INSPECTION, NORMOCEPHALIC - Eye Exam Eye Exam: EOMI, Normal appearance, PERRL Pupil Exam: NORMAL ACCOMODATION, PERRL - ENT Exam ENT Exam: Mucous Membranes Moist, Normal Exam - Neck Exam Neck exam: Positive for: Normal Inspection - Respiratory Exam Respiratory Exam: Clear to Auscultation Bilateral, NORMAL BREATHING PATTERN - Cardiovascular Exam Cardiovascular Exam: REGULAR RHYTHM, +S1, +S2, Systolic Murmur - GI/Abdominal Exam GI & Abdominal Exam: Normal Bowel Sounds, Soft. absent: Tenderness - Extremities Exam Extremities exam: Positive for: normal inspection - Back Exam Back exam: NORMAL INSPECTION - Neurological Exam Neurological exam: Alert, CN II-XII Intact, Normal Gait, Oriented x3, Reflexes Normal - Psychiatric Exam Psychiatric exam: Normal Affect, Normal Mood - Skin Skin Exam: Dry, Intact, Normal Color, Warm Results - Vital Signs Recent Vital Signs: Last Vital Signs Temp 98.2 F 06/07/17 08:10 Pulse 81 06/07/17 08:10 Resp 20 06/07/17 08:10 BP 103/66 06/07/17 08:10 Pulse Ox 95 06/07/17 00:05 - Labs Result Diagrams: 06/07/17 08:16 06/07/17 08:16 Labs: Laboratory Results - last 24 hr 06/06/17 06/06/17 06/07/17 16:45 21:04 06:32 WBC RBC Hgb Hct MCV MCH MCHC RDW Plt Count MPV Neut % (Auto) Lymph % (Auto) [place] % (Auto) Eos % (Auto) Baso % (Auto) Neut # Lymph # [place] # Eos # Baso # Sodium Potassium Chloride Carbon Dioxide Anion Gap BUN Creatinine Est GFR ( Amer) Est GFR (Non-Af Amer) POC Glucose (mg/dL) 132 H 127 H 128 H Random Glucose Calcium Phosphorus Magnesium Total Bilirubin AST ALT Alkaline Phosphatase Total Protein Albumin Globulin Albumin/Globulin Ratio 06/07/17 06/07/17 06/07/17 08:16 08:16 11:29 WBC 10.9 H RBC 4.18 L Hgb 12.7 Hct 36.7 MCV 87.7 MCH 30.3 MCHC 34.5 RDW 13.6 Plt Count 340 MPV 7.3 Neut % (Auto) 74.6 Lymph % (Auto) 14.4 L [place] % (Auto) 8.2 Eos % (Auto) 2.0 Baso % (Auto) 0.8 Neut # 8.1 H Lymph # 1.6 [place] # 0.9 H Eos # 0.2 Baso # 0.1 Sodium 130 L Potassium 4.0 Chloride 97 L Carbon Dioxide 25 Anion Gap 12 BUN 14 Creatinine 0.7 L Est GFR ( Amer) > 60 Est GFR (Non-Af Amer) > 60 POC Glucose (mg/dL) 132 H Random Glucose 123 H Calcium 8.0 L Phosphorus 3.6 Magnesium 1.8 Total Bilirubin 0.5 AST 37 ALT 61 Alkaline Phosphatase 68 Total Protein 6.8 Albumin 3.7 Globulin 3.1 Albumin/Globulin Ratio 1.2 Assessment & Plan (1) CHF (congestive heart failure) Status: Acute (2) Cellulitis Status: Acute (3) Bilateral edema of lower extremity Status: Acute (4) Chronic ulcer of right leg Status: Acute (5) Lymphedema of both lower extremities Status: Acute (6) Morbid obesity Status: Acute (7) Swelling of lower extremity Status: Acute
--- NOTE | 2017-06-07 16:51 | CP.PCM.PN ---
Subjective - Date & Time of Evaluation Date of Evaluation: 06/07/17 Time of Evaluation: 09:00 - Subjective Subjective: The patient was seen and examined this morning. The patient states that he got some sleep last night. He feels fatigued and "run down" since he "exercised" in his room yesterday by walking around. He denies shortness of breath, fever, chills, palpitations, hemoptysis. He admits to couch and sputum production. He denies pleuritic chest pain today but admits to some fatigue. He denies any trouble breathing today. He states that his appetite is fine and that he is having no trouble urinating and defecating. Vital signs: Temperature: 98.2 F Pulse: 81 bpm Respiratory rate: 20 Blood pressure: 103/66 mm Hg Pulse oximetry: 95% on RA Physical examination: Cardiovascular: RRR, +s1, +s2, no murmurs, rubs, or gallops Pulmonary: lungs clear to auscultation bilaterally, normal breathing pattern, no rales or rhonchi Labs: Microbiology: Vancomycin trough 7.7 Left leg wound culture MRSA + Assessment & Plan: Intermittent shortness of breath * Echocardiogram findings: * EF 40-45% * LV global hypokinesis * Abnormal transmitral Doppler flow pattern * RA, RV, LA normal * Mild MR and TR * Likely multifactorial etiology due to obesity hypoventilation syndrome (BMI 62 ), obstructive sleep apnea, and some degree of CHF * Continue Flonase and Duonebs prn Objective - Vital Signs/Intake and Output Vital Signs (last 24 hours): Temp Pulse Resp BP Pulse Ox 98.4 F 82 20 106/70 98 06/07/17 16:25 06/07/17 16:25 06/07/17 16:25 06/07/17 16:25 06/07/17 16:25 Intake and Output: 06/07/17 06/07/17 06:59 18:59 Intake Total 300 Balance 300 - Medications Medications: Current Medications Albuterol/Ipratropium (Duoneb 3 Mg/0.5 Mg (3 Ml) Ud) 3 ml INH RQ6 PRN PRN Reason: SOB, Wheezing Aspirin (Aspirin Chewable) 81 mg PO DAILY [facility] Dextrose (Dextrose 50% Inj) 0 ml IV STAT PRN; Protocol PRN Reason: Hypoglycemia Protocol Dextrose (Glutose 15) 15 gm PO ONCE PRN; Protocol PRN Reason: Hypoglycemia Protocol Fluticasone Propionate (Flonase) 1 spr LUISA RQ12 [facility] Last Admin: 06/07/17 08:24 Dose: 1 spr Glucagon (Glucagen Diagnostic Kit) 1 mg IM STAT PRN; Protocol PRN Reason: Hypoglycemia Protocol Heparin Sodium (Porcine) (Heparin) 5,000 units SC Q8 [facility] Last Admin: 06/07/17 13:50 Dose: 5,000 units Hydrocortisone (Cortizone 1% Cream) 1 gm TOP Q6H PRN PRN Reason: Itching / Pruritus Last Admin: 06/05/17 22:31 Dose: 1 applic Dextrose (Dextrose 5% In Water 1000 Ml) 1,000 mls @ 0 mls/hr IV .Q0M PRN; Protocol; Per Protocol PRN Reason: Hypoglycemia Protocol Vancomycin HCl 2 gm/ Sodium (Chloride) 500 mls @ 166.667 mls/hr IVPB Q12H [facility] Last Admin: 06/07/17 06:12 Dose: 166.667 mls/hr Insulin Human Regular (Novolin R) 0 unit SC ACHS [facility] PRN Reason: Protocol Last Admin: 06/07/17 12:08 Dose: Not Given Lisinopril (Zestril) 5 mg PO DAILY [facility] Last Admin: 06/07/17 11:22 Dose: 5 mg Pantoprazole Sodium (Protonix Ec Tab) 40 mg PO DAILY [facility] Last Admin: 06/07/17 09:24 Dose: 40 mg Saccharomyces Boulardii (Florastor) 250 mg PO BID [facility] Last Admin: 06/07/17 09:24 Dose: 250 mg - Labs Labs: 06/07/17 08:16 06/07/17 08:16 PT 10.9 SECONDS (9.7-12.2) 06/03/17 16:45 INR 1.0 06/03/17 16:45 APTT 28 SECONDS (21-34) 06/03/17 16:45
--- NOTE | 2017-06-07 18:54 | CP.PCM.PN ---
Subjective - Date & Time of Evaluation Date of Evaluation: 06/07/17 Time of Evaluation: 10:00 - Subjective Subjective: Patient has been seen and examined. Patient had lower ext. tenderness overnight requiring Morphine 4 IV . The morphine resolved the patients symptoms. Patient does complain of a "weird" feeling in his groin area. He denied any itching or tenderness. Patient denies any chest pain, SOB, abdominal cade, changes in bowel movements or urinary symptoms. Objective - Vital Signs/Intake and Output Vital Signs (last 24 hours): Temp Pulse Resp BP Pulse Ox 98.4 F 82 20 106/70 98 06/07/17 16:25 06/07/17 16:25 06/07/17 16:25 06/07/17 16:25 06/07/17 16:25 Intake and Output: 06/07/17 06/07/17 06:59 18:59 Intake Total 300 Balance 300 - Medications Medications: Current Medications Albuterol/Ipratropium (Duoneb 3 Mg/0.5 Mg (3 Ml) Ud) 3 ml INH RQ6 PRN PRN Reason: SOB, Wheezing Aspirin (Aspirin Chewable) 81 mg PO DAILY [facility] Dextrose (Dextrose 50% Inj) 0 ml IV STAT PRN; Protocol PRN Reason: Hypoglycemia Protocol Dextrose (Glutose 15) 15 gm PO ONCE PRN; Protocol PRN Reason: Hypoglycemia Protocol Fluticasone Propionate (Flonase) 1 spr LUISA RQ12 [facility] Last Admin: 06/07/17 08:24 Dose: 1 spr Glucagon (Glucagen Diagnostic Kit) 1 mg IM STAT PRN; Protocol PRN Reason: Hypoglycemia Protocol Heparin Sodium (Porcine) (Heparin) 5,000 units SC Q8 [facility] Last Admin: 06/07/17 13:50 Dose: 5,000 units Hydrocortisone (Cortizone 1% Cream) 1 gm TOP Q6H PRN PRN Reason: Itching / Pruritus Last Admin: 06/05/17 22:31 Dose: 1 applic Dextrose (Dextrose 5% In Water 1000 Ml) 1,000 mls @ 0 mls/hr IV .Q0M PRN; Protocol; Per Protocol PRN Reason: Hypoglycemia Protocol Vancomycin HCl 2 gm/ Sodium (Chloride) 500 mls @ 166.667 mls/hr IVPB Q12H [facility] Last Admin: 06/07/17 06:12 Dose: 166.667 mls/hr Insulin Human Regular (Novolin R) 0 unit SC ACHS [facility] PRN Reason: Protocol Last Admin: 06/07/17 17:18 Dose: Not Given Lisinopril (Zestril) 5 mg PO DAILY [facility] Last Admin: 06/07/17 11:22 Dose: 5 mg Pantoprazole Sodium (Protonix Ec Tab) 40 mg PO DAILY [facility] Last Admin: 06/07/17 09:24 Dose: 40 mg Saccharomyces Boulardii (Florastor) 250 mg PO BID [facility] Last Admin: 06/07/17 17:24 Dose: 250 mg - Labs Labs: 06/07/17 08:16 06/07/17 08:16 PT 10.9 SECONDS (9.7-12.2) 06/03/17 16:45 INR 1.0 06/03/17 16:45 APTT 28 SECONDS (21-34) 06/03/17 16:45 - Additional Findings Additional findings: - Constitutional Additional comments: Morbidly Obese - Head Exam Head Exam: ATRAUMATIC, NORMAL INSPECTION, NORMOCEPHALIC - Eye Exam Eye Exam: Normal appearance. absent: Scleral icterus - ENT Exam ENT Exam: Mucous Membranes Moist - Neck Exam Neck exam: Negative for: Lymphadenopathy - Respiratory Exam Respiratory Exam: Accessory Muscle Use, Clear to Auscultation Bilateral. absent : Rales, Rhonchi, Wheezes - Cardiovascular Exam Cardiovascular Exam: RRR, +S1, +S2 - GI/Abdominal Exam GI & Abdominal Exam: Soft, non-tenderner - Exam Exam: Normal Inspection - Extremities Exam Extremities exam: Positive for: pedal edema (+3), tenderness. Negative for: normal inspection - Neurological Exam Neurological exam: Alert, Oriented x3 - Psychiatric Exam Psychiatric exam: Normal Affect, Normal Mood - Skin Additional comments: R leg - +3 Edema erythematous, scaly, non-draining (skin changes start at ankle are a 1/[address] to the knee) L leg - +3 edema, 1x1cm ulcer on the left lower ext (Healing). Assessment and Plan - Assessment and Plan (Free Text) Assessment: 47 year old male with PMHx of chronic b/l leg edema/infections/ulcers (since 2004), and DMII presents with b/l lower ext. cellulitis, b/l lower ext. edema, and left lower ext. ulcer. Plan: Lower Ext. Venous Stasis Ulcer/Dermatitis, Cellulitis, Phlebitis, Edema 06/05: Day 2 of IV Vanc and Zosyn, blood cultures negative so far. continue UNNA boots. complications likely 2/2 Metabolic Syndrome Vascular consult - Dr. Gautam, help appreciated No surgical intervention at this time. ID consulted - Dr. Rizo, help appreciated Podiatry consulted - Dr. Meza, help appreciated PT/OT Venous Dopplers showed no DVT. Arterial Dopplers - PENDING IV Vanc 2grams Q12 Repeat Vanc Trough on Tuesday06/08/18 Blood Cultures - NEGATIVE Left Leg Wound Cultures - POSITIVE for MRSA. Cont. Contact Precautions Podiatry Consulted (Dr. Meza) UNNA bootshave been ordered Wound Care CHF ECHO (06/04/17): EF 40-50%, Grade I-abnormal relaxation pattern. mild MR and TR. Started on Lisinopril 5. Started ASA. Cardiology Consulted - Dr. Willis. F/U with Recs. DM II 06/05: continue current management. ISS - Medium HgBA1c: 6.9 Lipid Panel: Triglycerides: 173, Cholesterol: 184, LDL: 112, HDL: 41 Seasonal Allergies/Intermitent SOB Likely 2/2 to Obesity Hyperventilation syndrome vs CHF vs FERNANDO 06/05: Echo: Impression above Pulm consulted, Dr. Damon, help appreciated Pro-BNP: 38.3 Flonase Duonebs PRN Morbid Obesity [employer]or Referral Proph Heparin 5000 u sc q8h Protonix 40 mg po daily Florastor Heart Healthy Diet Patient discussed with Attending Kevin Veliz - PGY1
[2017-06-08] MEDS ORDERED: guaiFENesin DM 100 mg-10 mg/5 ml UD PO ONE (00:07)
[2017-06-08] MEDS ORDERED: guaiFENesin 100 mg/5 ml Syrup UD ONE (00:44)
[2017-06-08] MEDS: Vancomycin 2 GM in Sodium Chloride 0.9% 500 ML IVPB SCH ×2 (06:04→18:43)
[2017-06-08] MEDS: (Novolin R) Insulin Human Regular 100 units/ml vial SC SCH ×4 (07:48→21:27)
[2017-06-08] MEDS: Fluticasone Nasal 50 mcg/Spray NAS SCH ×2 (08:42→20:02)
[2017-06-08] MEDS: Saccharomyces Boulardi 250 mg Cap PO SCH ×2 (09:13→17:20)
[2017-06-08] MEDS: Pantoprazole 40 mg EC Tab PO SCH (09:13)
--- NOTE | 2017-06-08 09:33 | CP.PCM.PN ---
Subjective - Date & Time of Evaluation Date of Evaluation: 06/08/17 Time of Evaluation: 09:30 - Subjective Subjective: PGY 2 progress note for cardiology, Dr. Willis Pt seen and examined at bedside. Pt presented to hospital on 06/03/17 for LE swelling and pain. Pt was sent in by PMD, Dr. Salinas for the swelling. Cardiology was consulted for new onset of CHF as noted on his echo on admission (LVEF of 40-45%). Currently, resting comfortably. No acute events overnight. C/O LE discomfort. Denies having any calf pain, chest pain, SOB, abd pain, N/ V/D/C. 12 point ROS negative except for above mentioned. PMHx: chronic LE swelling, B/L Le chronic lymphedema, DM type II, FERNANDO Social; Denies tobocca, ETOH or drug use Denies FHX of CAD Objective - Vital Signs/Intake and Output Vital Signs (last 24 hours): Temp Pulse Resp BP Pulse Ox 98.4 F 69 21 94/60 L 91 L 06/08/17 08:49 06/08/17 08:49 06/08/17 08:49 06/08/17 08:49 06/08/17 08:49 Intake and Output: 06/08/17 06/08/17 06:59 18:59 Intake Total 1000 Balance 1000 - Medications Medications: Current Medications Acetaminophen (Tylenol 325mg Tab) 650 mg PO Q6 PRN PRN Reason: fever, pain Last Admin: 06/08/17 01:00 Dose: 650 mg Albuterol/Ipratropium (Duoneb 3 Mg/0.5 Mg (3 Ml) Ud) 3 ml INH RQ6 PRN PRN Reason: SOB, Wheezing Aspirin (Aspirin Chewable) 81 mg PO DAILY [facility] Last Admin: 06/08/17 09:13 Dose: 81 mg Dextrose (Dextrose 50% Inj) 0 ml IV STAT PRN; Protocol PRN Reason: Hypoglycemia Protocol Dextrose (Glutose 15) 15 gm PO ONCE PRN; Protocol PRN Reason: Hypoglycemia Protocol Fluticasone Propionate (Flonase) 1 spr LUISA RQ12 [facility] Last Admin: 06/07/17 19:18 Dose: 1 spr Glucagon (Glucagen Diagnostic Kit) 1 mg IM STAT PRN; Protocol PRN Reason: Hypoglycemia Protocol Heparin Sodium (Porcine) (Heparin) 5,000 units SC Q8 [facility] Last Admin: 06/08/17 06:05 Dose: 5,000 units Hydrocortisone (Cortizone 1% Cream) 1 gm TOP Q6H PRN PRN Reason: Itching / Pruritus Last Admin: 06/05/17 22:31 Dose: 1 applic Dextrose (Dextrose 5% In Water 1000 Ml) 1,000 mls @ 0 mls/hr IV .Q0M PRN; Protocol; Per Protocol PRN Reason: Hypoglycemia Protocol Vancomycin HCl 2 gm/ Sodium (Chloride) 500 mls @ 166.667 mls/hr IVPB Q12H [facility] Last Admin: 06/08/17 06:04 Dose: 166.667 mls/hr Insulin Human Regular (Novolin R) 0 unit SC ACHS [facility] PRN Reason: Protocol Last Admin: 06/08/17 07:48 Dose: Not Given Lisinopril (Zestril) 5 mg PO DAILY [facility] Last Admin: 06/08/17 09:13 Dose: 5 mg Pantoprazole Sodium (Protonix Ec Tab) 40 mg PO DAILY [facility] Last Admin: 06/08/17 09:13 Dose: 40 mg Saccharomyces Boulardii (Florastor) 250 mg PO BID [facility] Last Admin: 06/08/17 09:13 Dose: 250 mg - Labs Labs: 06/07/17 08:16 06/07/17 08:16 PT 10.9 SECONDS (9.7-12.2) 06/03/17 16:45 INR 1.0 06/03/17 16:45 APTT 28 SECONDS (21-34) 06/03/17 16:45 - Constitutional Appears: Non-toxic, No Acute Distress - Head Exam Head Exam: ATRAUMATIC - ENT Exam ENT Exam: Mucous Membranes Moist - Respiratory Exam Respiratory Exam: Clear to Ausculation Bilateral, NORMAL BREATHING PATTERN. absent: Accessory Muscle Use, Rhonchi, Wheezes, Respiratory Distress - Cardiovascular Exam Cardiovascular Exam: REGULAR RHYTHM, +S1, +S2. absent: Gallop, Rubs, Murmur - GI/Abdominal Exam GI & Abdominal Exam: Soft, Normal Bowel Sounds. absent: Distended, Firm, Guarding, Rigid, Tenderness, Organomegaly - Extremities Exam Extremities Exam: Pedal Edema, Tenderness (B/L LE ) - Neurological Exam Neurological Exam: Alert, Awake, Oriented x3 - Psychiatric Exam Psychiatric exam: Normal Affect, Normal Mood - Skin Skin Exam: Erythema (noted B/L in LE ) Assessment and Plan - Assessment and Plan (Free Text) Assessment: 47 year old male with past medical history of chronic lymphedema or LE B/L, obesity, DM type II, FERNANDO is being seen for new onset CHF as noted on echo from that showed EF of 40-45%. (1) CHF (congestive heart failure) Echo reviewed again. LVEF is noted to be normal. S prime velocity is above 7 Continue Zestril 5 mg po qd Will start pt on low dose statin ProBNP on admission was 38 which is inconsistent with CHF exacerbation Hgb A1c was 6.9 Lipid panel showed TG 173 Chol 184 LDL 112 HDL 41 LE swelling likely a combination of obesity plus chronic lymphedema plus acute on chronic infection. Edema less likely to be cardiac in nature in setting of normal LVEF. Pt will require chronic use of compression stockings. (2) Cellulitis wound culture grew MRSA Continue Abx per ID. Currently on vancomycin podiatry consulted (3) Bilateral edema of lower extremity Pt has chronic LE edema. Currently about +1 edema LE venous duplex negative for DVT Vascular, Dr. Gautam consulted. No surgical intervention at this time (4) Chronic ulcer of right leg Continue Abx per ID (5) Lymphedema of both lower extremities Continue to monitor (6) Morbid obesity Backfiller is consulted Case will be discussed with attending, Dr. Willis.
[2017-06-08 12:04] LABS: BASO # 0.1 K/uL (0.0-0.2); BASO % 0.9 % (0.0-2.0); EOS # 0.2 K/uL (0.0-0.7); EOS % 1.6 % (0.0-4.0); HEMOGLOBIN 13.5 g/dL (12.0-18.0); LYMPH # 1.4 K/uL (1.0-4.3); LYMPH % 11.8 % (20.0-40.0); MEAN CELL VOLUME 87.6 fL (80.0-94.0); MEAN CORPUSCULAR HEMOGLOBIN 30.1 pg (27.0-31.0); MEAN CORPUSCULAR HGB CONC 34.3 g/dL (33.0-37.0); MONO % 8.3 % (0.0-10.0); NEUT # 9.4 K/uL (1.8-7.0); NEUT % 77.4 % (50.0-75.0); RBC 4.47 Mil/uL (4.40-5.90); WHITE BLOOD COUNT 12.1 K/uL (4.8-10.8)
--- NOTE | 2017-06-08 12:25 | CP.PCM.CON ---
History of Present Illness - History of Present Illness History of Present Illness: 47 year old male with PMHx of chronic b/l leg edema/infections/ulcers (since 2004), and DMII presents with b/l lower ext. cellulitis, b/l lower ext. edema, and left lower ext. ulcer. Patient states that he has had the venous stasis ulcerations since last July and was being treated by his vascular doctor with unna boots. Patient states that he has pain in his legs, right worse than left. Patient states that the wounds are mildly sensitive to touch. Patient denies any other pedal complaints at this time. He denies any n/f/v/d/c/sob. Review of Systems - Constitutional Constitutional: As Per HPI Past Patient History - Past Medical History & Family History Past Medical History?: Yes - Past Social History Smoking Status: Never Smoked - CARDIAC Hx Peripheral Edema: Yes - PULMONARY Hx Sleep Apnea: Yes - ENDOCRINE/METABOLIC Hx Diabetes Mellitus Type 2: Yes - MUSCULOSKELETAL/RHEUMATOLOGICAL Hx Arthritis: Yes (ANKLES) - PSYCHIATRIC Hx Substance Use: No - SURGICAL HISTORY Hx Surgeries: Yes Other/Comment: laser procedures on both legs Meds Allergies/Adverse Reactions: Allergies Allergy/AdvReac Type Severity Reaction Status Date / Time No Known Allergies Allergy Verified 06/03/17 14:53 - Medications Medications: Current Medications Acetaminophen (Tylenol 325mg Tab) 650 mg PO Q6 PRN PRN Reason: fever, pain Last Admin: 06/08/17 01:00 Dose: 650 mg Albuterol/Ipratropium (Duoneb 3 Mg/0.5 Mg (3 Ml) Ud) 3 ml INH RQ6 PRN PRN Reason: SOB, Wheezing Aspirin (Aspirin Chewable) 81 mg PO DAILY [facility] Last Admin: 06/08/17 09:13 Dose: 81 mg Dextrose (Dextrose 50% Inj) 0 ml IV STAT PRN; Protocol PRN Reason: Hypoglycemia Protocol Dextrose (Glutose 15) 15 gm PO ONCE PRN; Protocol PRN Reason: Hypoglycemia Protocol Fluticasone Propionate (Flonase) 1 spr LUISA RQ12 [facility] Last Admin: 06/07/17 19:18 Dose: 1 spr Glucagon (Glucagen Diagnostic Kit) 1 mg IM STAT PRN; Protocol PRN Reason: Hypoglycemia Protocol Heparin Sodium (Porcine) (Heparin) 5,000 units SC Q8 [facility] Last Admin: 06/08/17 06:05 Dose: 5,000 units Hydrocortisone (Cortizone 1% Cream) 1 gm TOP Q6H PRN PRN Reason: Itching / Pruritus Last Admin: 06/05/17 22:31 Dose: 1 applic Vancomycin HCl 2 gm/ Sodium (Chloride) 500 mls @ 166.667 mls/hr IVPB Q12H [facility] Last Admin: 06/08/17 06:04 Dose: 166.667 mls/hr Insulin Human Regular (Novolin R) 0 unit SC ACHS [facility] PRN Reason: Protocol Last Admin: 06/08/17 07:48 Dose: Not Given Lisinopril (Zestril) 5 mg PO DAILY [facility] Last Admin: 06/08/17 09:13 Dose: 5 mg Pantoprazole Sodium (Protonix Ec Tab) 40 mg PO DAILY [facility] Last Admin: 06/08/17 09:13 Dose: 40 mg Rosuvastatin Calcium (Crestor) 2.5 mg PO [facility] Saccharomyces Boulardii (Florastor) 250 mg PO BID [facility] Last Admin: 06/08/17 09:13 Dose: 250 mg Physical Exam - Constitutional Appears: Well, Non-toxic, No Acute Distress - Extremities Exam Additional comments: Vasc: nonpalpable pedal pulses due to nonpitting edema, TG wnl, CFT < 4 sec to all digits neuro: grossly diminished derm: open ulceration to anterior wadsworth of right leg measuring 2cm x 1cm x 0.2 cm with granular base, macerated border, brawny discoloration to anterior shins of right and left lower extremity with hyperpigmentation, open ulceration to left anterior wadsworth proximal to ankle joint measuring 1cm x 1.5cm x 0.2cm with granular base, no drainage, no purulence, no malodor, no fluctuance, no ascending cellulitis ortho: mild pain to palpation of anterior shins b/l - Neurological Exam Neurological exam: Alert, Oriented x3 - Psychiatric Exam Psychiatric exam: Normal Affect, Normal Mood Results - Vital Signs Recent Vital Signs: Last Vital Signs Temp 98.4 F 06/08/17 08:49 Pulse 69 06/08/17 08:49 Resp 21 06/08/17 08:49 BP 94/60 L 06/08/17 08:49 Pulse Ox 91 L 06/08/17 08:49 - Labs Result Diagrams: 06/08/17 11:55 06/07/17 08:16 Labs: Laboratory Results - last 24 hr 06/07/17 06/07/17 06/08/17 16:48 21:20 06:34 WBC RBC Hgb Hct MCV MCH MCHC RDW Plt Count MPV Neut % (Auto) Lymph % (Auto) Marshall % (Auto) Eos % (Auto) Baso % (Auto) Neut # Lymph # Marshall # Eos # Baso # POC Glucose (mg/dL) 137 H 123 H 118 H 06/08/17 11:55 WBC 12.1 H RBC 4.47 Hgb 13.5 Hct 39.2 MCV 87.6 MCH 30.1 MCHC 34.3 RDW 14.0 Plt Count 345 MPV 7.0 L Neut % (Auto) 77.4 H Lymph % (Auto) 11.8 L Marshall % (Auto) 8.3 Eos % (Auto) 1.6 Baso % (Auto) 0.9 Neut # 9.4 H Lymph # 1.4 Marshall # 1.0 H Eos # 0.2 Baso # 0.1 POC Glucose (mg/dL) Assessment & Plan - Assessment and Plan (Free Text) Assessment: 47 y/o male seen at bedside for bilateral venous stasis ulcerations Plan: patient evaluated and chart reviewed discussed in detail with attending Dr. Meza labs and vitals reviewed; Tmax 101 overnight, afebrile currently; WBC 12.1 cont. Iv abx as per ID applied bilateral unna boots to lower extremities with coban keep dressing c/d/i thank you for the consultation
[2017-06-08 12:29] LABS: ALB/GLOB RATIO 1.1 (1.0-2.1); ALBUMIN 3.7 g/dL (3.5-5.0); ALT/SGPT 68 U/L (21-72); AST/SGOT 51 U/L (17-59); BLOOD UREA NITROGEN 10 mg/dL (9-20); CALCIUM 7.9 mg/dl (8.6-10.4); GFR AFRICAN-AMERICAN > 60; GFR NON-AFRICAN AMERICAN > 60; MAGNESIUM 1.7 mg/dL (1.6-2.3)
[2017-06-08 12:36] LABS: B-TYPE NATRIURETIC PEPTIDE 27.5 pg/mL (0-450)
--- NOTE | 2017-06-08 15:17 | CP.PCM.PN ---
Subjective - Date & Time of Evaluation Date of Evaluation: 06/08/17 Time of Evaluation: 10:00 - Subjective Subjective: The patient was seen and examined this morning. He states that he slept fine. His breathing is much better today. He does not feel "run down" today. He denies fever, chills, chest pain, palpitations and hemoptysis. He admits to a mild cough and white sputum production. He states that his appetite is fine and that he is having not trouble urinating and defecating. Vital signs: Temperature: 98.4 F Pulse: 69 bpm Respiratory rate: 21 brpm Blood pressure: 94/60 mm Hg Pulse oximetry: 91% on RA Physical examination: Cardiovascular: RRR, +s1, +s2, no murmurs, rubs, or gallops Pulmonary: lungs clear to auscultation bilaterally, normal breathing pattern, no rales or rhonchi Labs: 06/08/2017 Microbiology: Vancomycin trough 16.3 Left leg wound culture MRSA + Assessment & Plan: Intermittent shortness of breath * Likely multifactorial etiology due to obesity hypoventilation syndrome (BMI 62 ), obstructive sleep apnea, and some degree of CHF * CXR appears hazy, resembling pulmonary edema * Echocardiogram findings: * EF 40-45% * LV global hypokinesis * Abnormal transmitral Doppler flow pattern * RA, RV, LA normal * Mild MR and TR * O2 saturation this morning was 91% * Start lasix * Monitor O2 saturation * Consider oxygen therapy * Continue Flonase and Duonebs prn Objective - Vital Signs/Intake and Output Vital Signs (last 24 hours): Temp Pulse Resp BP Pulse Ox 98.4 F 69 21 94/60 L 91 L 06/08/17 08:49 06/08/17 08:49 06/08/17 08:49 06/08/17 08:49 06/08/17 08:49 Intake and Output: 06/08/17 06/08/17 06:59 18:59 Intake Total 1000 Balance 1000 - Medications Medications: Current Medications Acetaminophen (Tylenol 325mg Tab) 650 mg PO Q6 PRN PRN Reason: fever, pain Last Admin: 06/08/17 14:12 Dose: 650 mg Albuterol/Ipratropium (Duoneb 3 Mg/0.5 Mg (3 Ml) Ud) 3 ml INH RQ6 PRN PRN Reason: SOB, Wheezing Aspirin (Aspirin Chewable) 81 mg PO DAILY [facility] Last Admin: 06/08/17 09:13 Dose: 81 mg Dextrose (Dextrose 50% Inj) 0 ml IV STAT PRN; Protocol PRN Reason: Hypoglycemia Protocol Dextrose (Glutose 15) 15 gm PO ONCE PRN; Protocol PRN Reason: Hypoglycemia Protocol Fluticasone Propionate (Flonase) 1 spr LUISA RQ12 [facility] Last Admin: 06/08/17 08:42 Dose: Not Given Glucagon (Glucagen Diagnostic Kit) 1 mg IM STAT PRN; Protocol PRN Reason: Hypoglycemia Protocol Heparin Sodium (Porcine) (Heparin) 5,000 units SC Q8 [facility] Last Admin: 06/08/17 14:06 Dose: 5,000 units Hydrocortisone (Cortizone 1% Cream) 1 gm TOP Q6H PRN PRN Reason: Itching / Pruritus Last Admin: 06/05/17 22:31 Dose: 1 applic Vancomycin HCl 2 gm/ Sodium (Chloride) 500 mls @ 166.667 mls/hr IVPB Q12H [facility] Last Admin: 06/08/17 06:04 Dose: 166.667 mls/hr Insulin Human Regular (Novolin R) 0 unit SC ACHS [facility] PRN Reason: Protocol Last Admin: 06/08/17 07:48 Dose: Not Given Lisinopril (Zestril) 5 mg PO DAILY [facility] Last Admin: 06/08/17 09:13 Dose: 5 mg Pantoprazole Sodium (Protonix Ec Tab) 40 mg PO DAILY [facility] Last Admin: 06/08/17 09:13 Dose: 40 mg Rosuvastatin Calcium (Crestor) 2.5 mg PO HS [facility] Saccharomyces Boulardii (Florastor) 250 mg PO BID [facility] Last Admin: 06/08/17 09:13 Dose: 250 mg - Labs Labs: 06/08/17 11:55 06/08/17 11:56 PT 10.9 SECONDS (9.7-12.2) 06/03/17 16:45 INR 1.0 06/03/17 16:45 APTT 28 SECONDS (21-34) 06/03/17 16:45
--- NOTE | 2017-06-08 15:34 | RAD ---
HISTORY: Febrile Overnight COMPARISON: 08/10/2014 FINDINGS: LUNGS: No active pulmonary disease. PLEURA: No significant pleural effusion identified, no pneumothorax apparent. CARDIOVASCULAR: No radiographic findings to suggest acute or significant cardiovascular disease. OSSEOUS STRUCTURES: No significant abnormalities. VISUALIZED UPPER ABDOMEN: Normal. OTHER FINDINGS: None. IMPRESSION: No active disease. No significant interval change compared to the prior examination(s).
--- NOTE | 2017-06-08 16:38 | CP.PCM.PN ---
Subjective - Date & Time of Evaluation Date of Evaluation: 06/08/17 Time of Evaluation: 07:00 - Subjective Subjective: still with low grade temps had unna boot placed IV rx to cont for MRSA Objective - Vital Signs/Intake and Output Vital Signs (last 24 hours): Temp Pulse Resp BP Pulse Ox 100.4 F H 87 21 113/73 95 06/08/17 15:00 06/08/17 15:00 06/08/17 15:00 06/08/17 15:47 06/08/17 15:00 Intake and Output: 06/08/17 06/08/17 06:59 18:59 Intake Total 1000 Balance 1000 - Medications Medications: Current Medications Acetaminophen (Tylenol 325mg Tab) 650 mg PO Q6 PRN PRN Reason: fever, pain Last Admin: 06/08/17 14:12 Dose: 650 mg Albuterol/Ipratropium (Duoneb 3 Mg/0.5 Mg (3 Ml) Ud) 3 ml INH RQ6 PRN PRN Reason: SOB, Wheezing Aspirin (Aspirin Chewable) 81 mg PO DAILY [facility] Last Admin: 06/08/17 09:13 Dose: 81 mg Dextrose (Dextrose 50% Inj) 0 ml IV STAT PRN; Protocol PRN Reason: Hypoglycemia Protocol Dextrose (Glutose 15) 15 gm PO ONCE PRN; Protocol PRN Reason: Hypoglycemia Protocol Fluticasone Propionate (Flonase) 1 spr LUISA RQ12 [facility] Last Admin: 06/08/17 08:42 Dose: Not Given Glucagon (Glucagen Diagnostic Kit) 1 mg IM STAT PRN; Protocol PRN Reason: Hypoglycemia Protocol Heparin Sodium (Porcine) (Heparin) 5,000 units SC Q8 [facility] Last Admin: 06/08/17 14:06 Dose: 5,000 units Hydrocortisone (Cortizone 1% Cream) 1 gm TOP Q6H PRN PRN Reason: Itching / Pruritus Last Admin: 06/05/17 22:31 Dose: 1 applic Vancomycin HCl 2 gm/ Sodium (Chloride) 500 mls @ 166.667 mls/hr IVPB Q12H [facility] Last Admin: 06/08/17 06:04 Dose: 166.667 mls/hr Insulin Human Regular (Novolin R) 0 unit SC ACHS [facility] PRN Reason: Protocol Last Admin: 06/08/17 11:40 Dose: Not Given Lisinopril (Zestril) 5 mg PO DAILY [facility] Last Admin: 06/08/17 09:13 Dose: 5 mg Pantoprazole Sodium (Protonix Ec Tab) 40 mg PO DAILY [facility] Last Admin: 06/08/17 09:13 Dose: 40 mg Rosuvastatin Calcium (Crestor) 2.[address] [facility] Saccharomyces Boulardii (Florastor) 250 mg PO BID [facility] Last Admin: 06/08/17 09:13 Dose: 250 mg - Labs Labs: 06/08/17 11:55 06/08/17 11:56 PT 10.9 SECONDS (9.7-12.2) 06/03/17 16:45 INR 1.0 06/03/17 16:45 APTT 28 SECONDS (21-34) 06/03/17 16:45 - Constitutional Appears: Non-toxic, Chronically Ill - Head Exam Head Exam: NORMOCEPHALIC - Eye Exam Eye Exam: PERRL - ENT Exam ENT Exam: Mucous Membranes Dry - Neck Exam Neck Exam: absent: Lymphadenopathy - Respiratory Exam Respiratory Exam: Decreased Breath Sounds, Clear to Ausculation Bilateral - Cardiovascular Exam Cardiovascular Exam: REGULAR RHYTHM, +S1, +S2 - GI/Abdominal Exam GI & Abdominal Exam: Distended, Soft - Rectal Exam Rectal Exam: Deferred - Exam Exam: NORMAL INSPECTION - Extremities Exam Extremities Exam: absent: Pedal Edema - Back Exam Back Exam: absent: CVA tenderness (L), CVA tenderness (R) - Neurological Exam Neurological Exam: Alert, Awake, Normal Gait Assessment and Plan (1) Cellulitis Status: Acute (2) Bilateral edema of lower extremity Status: Acute (3) Chronic ulcer of right leg Status: Acute (4) Lymphedema of both lower extremities Status: Acute (5) Morbid obesity Status: Acute
--- NOTE | 2017-06-08 16:46 | CP.PCM.PN ---
<Kevin Veliz - Last Filed: 06/08/17 18:30> Subjective - Date & Time of Evaluation Date of Evaluation: 06/08/17 Time of Evaluation: 09:00 - Subjective Subjective: Patient has been seen and examined. Fever reported overnight that resolved with Tylenol. Patient still complains of mild lower ext. tenderness which is controlled with the Tylenol as well. He denies any SOB, chest pain, changes in bowel habits, or urinary symptoms. Objective - Vital Signs/Intake and Output Vital Signs (last 24 hours): Temp Pulse Resp BP Pulse Ox 100.4 F H 87 21 113/73 95 06/08/17 15:00 06/08/17 15:00 06/08/17 15:00 06/08/17 15:47 06/08/17 15:00 Intake and Output: 06/08/17 06/08/17 06:59 18:59 Intake Total 1000 Balance 1000 - Medications Medications: Current Medications Acetaminophen (Tylenol 325mg Tab) 650 mg PO Q6 PRN PRN Reason: fever, pain Last Admin: 06/08/17 14:12 Dose: 650 mg Albuterol/Ipratropium (Duoneb 3 Mg/0.5 Mg (3 Ml) Ud) 3 ml INH RQ6 PRN PRN Reason: SOB, Wheezing Aspirin (Aspirin Chewable) 81 mg PO DAILY [facility] Last Admin: 06/08/17 09:13 Dose: 81 mg Dextrose (Dextrose 50% Inj) 0 ml IV STAT PRN; Protocol PRN Reason: Hypoglycemia Protocol Dextrose (Glutose 15) 15 gm PO ONCE PRN; Protocol PRN Reason: Hypoglycemia Protocol Fluticasone Propionate (Flonase) 1 spr LUISA RQ12 [facility] Last Admin: 06/08/17 08:42 Dose: Not Given Glucagon (Glucagen Diagnostic Kit) 1 mg IM STAT PRN; Protocol PRN Reason: Hypoglycemia Protocol Heparin Sodium (Porcine) (Heparin) 5,000 units SC Q8 [facility] Last Admin: 06/08/17 14:06 Dose: 5,000 units Hydrocortisone (Cortizone 1% Cream) 1 gm TOP Q6H PRN PRN Reason: Itching / Pruritus Last Admin: 06/05/17 22:31 Dose: 1 applic Vancomycin HCl 2 gm/ Sodium (Chloride) 500 mls @ 166.667 mls/hr IVPB Q12H [facility] Last Admin: 06/08/17 06:04 Dose: 166.667 mls/hr Insulin Human Regular (Novolin R) 0 unit SC ACHS [facility] PRN Reason: Protocol Last Admin: 06/08/17 11:40 Dose: Not Given Lisinopril (Zestril) 5 mg PO DAILY [facility] Last Admin: 06/08/17 09:13 Dose: 5 mg Pantoprazole Sodium (Protonix Ec Tab) 40 mg PO DAILY [facility] Last Admin: 06/08/17 09:13 Dose: 40 mg Rosuvastatin Calcium (Crestor) 2.5 mg PO [facility] Saccharomyces Boulardii (Florastor) 250 mg PO BID [facility] Last Admin: 06/08/17 09:13 Dose: 250 mg - Labs Labs: 06/08/17 11:55 06/08/17 11:56 PT 10.9 SECONDS (9.7-12.2) 06/03/17 16:45 INR 1.0 06/03/17 16:45 APTT 28 SECONDS (21-34) 06/03/17 16:45 - Additional Findings Additional findings: Morbidly Obese - Head Exam Head Exam: ATRAUMATIC, NORMAL INSPECTION, NORMOCEPHALIC - Eye Exam Eye Exam: Normal appearance. absent: Scleral icterus - ENT Exam ENT Exam: Mucous Membranes Moist - Neck Exam Neck exam: Negative for: Lymphadenopathy - Respiratory Exam Respiratory Exam: Accessory Muscle Use, Clear to Auscultation Bilateral. absent : Rales, Rhonchi, Wheezes - Cardiovascular Exam Cardiovascular Exam: RRR, +S1, +S2 - GI/Abdominal Exam GI & Abdominal Exam: Soft, non-tenderner - Exam Exam: Normal Inspection - Extremities Exam Extremities exam: Positive for: pedal edema (+3), tenderness. Negative for: normal inspection - Neurological Exam Neurological exam: Alert, Oriented x3 - Psychiatric Exam Psychiatric exam: Normal Affect, Normal Mood - Skin Additional comments: R leg - +3 Edema erythematous, scaly, non-draining (skin changes start at ankle are a 1/[address] to the knee) L leg - +3 edema, 1x1cm ulcer on the left lower ext (Healing). Assessment and Plan - Assessment and Plan (Free Text) Assessment: 47 year old male with PMHx of chronic b/l leg edema/infections/ulcers (since 2004), and DMII presents with b/l lower ext. cellulitis, b/l lower ext. edema, and left lower ext. ulcer. Plan: Lower Ext. Venous Stasis Ulcer/Dermatitis, Cellulitis, Phlebitis, Edema 06/05: Day 2 of IV Vanc and Zosyn, blood cultures negative so far. continue UNNA boots. complications likely 2/2 Metabolic Syndrome Vascular consult - Dr. Gautam, help appreciated No surgical intervention at this time. ID consulted - Dr. Rizo, help appreciated. Will follow up tomorrow about how long patient needs to be on Antibiotics. Podiatry consulted - Dr. Meza, help appreciated PT/OT Venous Dopplers showed no DVT. Arterial Dopplers - PENDING IV Vanc 2grams Q12 Repeat Vanc Trough on Tuesday06/08/18 Blood Cultures - NEGATIVE Left Leg Wound Cultures - POSITIVE for MRSA. Cont. Contact Precautions Podiatry Consulted (Dr. Meza) UNNA placed by Podiatry Wound Care Febrile w/ Leukocytosis CXR (06/08/17): No Active Disease Blood Culture Ordered Urine Culture Ordered Became febrile again during the afternoon and was given Ibuprofen CHF ECHO (06/04/17): EF 40-50%, Grade I-abnormal relaxation pattern. mild MR and TR. Cont. Lisinopril 5 Cont. ASA 81 Crestor 2.5 Added per Cardio Cardiology Consulted - Dr. Willis. F/U with Recs. DM II 06/05: continue current management. ISS - Medium HgBA1c: 6.9 Lipid Panel: Triglycerides: 173, Cholesterol: 184, LDL: 112, HDL: 41 Seasonal Allergies/Intermitent SOB (Improving) Likely 2/2 to Obesity Hyperventilation syndrome vs CHF vs FERNANDO vs mixed presentation 06/05: Echo: Impression above Pulm consulted, Dr. 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 Heparin 5000 u sc q8h Protonix 40 mg po daily Florastor Heart Healthy Diet Patient discussed with Attending Kevin Veliz - PGY1 <Chavez Bright - Last Filed: 06/08/17 19:59> Objective - Vital Signs/Intake and Output Vital Signs (last 24 hours): Temp Pulse Resp BP Pulse Ox 100.4 F H 87 21 113/73 95 06/08/17 15:00 01/10/18 15:00 06/08/17 15:00 06/08/17 15:47 06/08/17 15:00 - Medications Medications: Current Medications Acetaminophen (Tylenol 325mg Tab) 650 mg PO Q6 PRN PRN Reason: fever, pain Last Admin: 06/08/17 14:12 Dose: 650 mg Albuterol/Ipratropium (Duoneb 3 Mg/0.5 Mg (3 Ml) Ud) 3 ml INH RQ6 PRN PRN Reason: SOB, Wheezing Aspirin (Aspirin Chewable) 81 mg PO DAILY [facility] Last Admin: 06/08/17 09:13 Dose: 81 mg Dextrose (Dextrose 50% Inj) 0 ml IV STAT PRN; Protocol PRN Reason: Hypoglycemia Protocol Dextrose (Glutose 15) 15 gm PO ONCE PRN; Protocol PRN Reason: Hypoglycemia Protocol Fluticasone Propionate (Flonase) 1 spr LUISA RQ12 [facility] Last Admin: 06/08/17 08:42 Dose: Not Given Glucagon (Glucagen Diagnostic Kit) 1 mg IM STAT PRN; Protocol PRN Reason: Hypoglycemia Protocol Heparin Sodium (Porcine) (Heparin) 5,000 units SC Q8 [facility] Last Admin: 06/08/17 14:06 Dose: 5,000 units Hydrocortisone (Cortizone 1% Cream) 1 gm TOP Q6H PRN PRN Reason: Itching / Pruritus Last Admin: 06/05/17 22:31 Dose: 1 applic Vancomycin HCl 2 gm/ Sodium (Chloride) 500 mls @ 166.667 mls/hr IVPB Q12H [facility] Last Admin: 06/08/17 18:43 Dose: 166.667 mls/hr Insulin Human Regular (Novolin R) 0 unit SC ACHS [facility] PRN Reason: Protocol Last Admin: 06/08/17 17:11 Dose: Not Given Lisinopril (Zestril) 5 mg PO DAILY [facility] Last Admin: 06/08/17 09:13 Dose: 5 mg Pantoprazole Sodium (Protonix Ec Tab) 40 mg PO DAILY [facility] Last Admin: 06/08/17 09:13 Dose: 40 mg Rosuvastatin Calcium (Crestor) 2.5 mg PO HS [facility] Saccharomyces Boulardii (Florastor) 250 mg PO BID [facility] Last Admin: 06/08/17 17:20 Dose: 250 mg - Labs Labs: 06/08/17 11:55 06/08/17 11:56 PT 10.9 SECONDS (9.7-12.2) 06/03/17 16:45 INR 1.0 06/03/17 16:45 APTT 28 SECONDS (21-34) 06/03/17 16:45 Attending/Attestation - Attestation I have personally seen and examined this patient.: Yes I have fully participated in the care of the patient.: Yes I have reviewed all pertinent clinical information, including history, physical exam and plan: Yes Notes (Text): 06/08/17 19:56 Hospitalist Progress Note Patient was seen and examined shortly after resident. Assessment and Plan and Exam were thoroughly Also on Exam: Extremities: Unna Boots placed by Podiatry today after my converstation with Dr. Meza Assessments: 1). Bilateral LE Cellulitis/Edema/Left Leg Ulcer Unna Boots placed by Dr. Meza's team Left Lateral Lower Leg Wound Culture came back positive for MRSA therefore placed on Contact Precautions 06/06/17, Vancomycin was increased to 2 gm IV Q12H (as trough was 7.7 and goal should be 15 and repeat Trough was ordered for at 5:30 AM and Trough is within range of 15 to 20), Zosyn was discontinued 06/06/17. Medicine Team will speak with ID Dr. Rizo for length of antibiotic and then arrange for ALEXANDER with Food Service Agent if patient agrees (he stated at the time of my exam that he would think about it Venous Duplex of Bilateral LE was negative for DVT Arterial Duplex of Bilateral LE f/U F/U Vascular Surgeon Dr. Gautam recommendations 2). Hx DM 2 RISS ACHS Hypoglycemia Protocol 3). Complaints of Dyspnea on Exertion/Orthopnea F/U 2D Echo F/U Machine Shop Repair Technician Dr. Damon recommendations Duoneb, Fluticasone 4). Prophylaxis Heparin, Florastor, Florastor Chavez Bright D.O.
[2017-06-08 21:13] LABS: SQUAMOUS EPITHIAL 2 /hpf (0-5); URINE BACTERIA RARE (<OCC); URINE BILIRUBIN NEGATIVE (NEGATIVE); URINE BLOOD 1+ (NEGATIVE); URINE CLARITY Clear (Clear); URINE COLOR Yellow (YELLOW); URINE GLUCOSE (UA) NORMAL (Normal); URINE LEUKOCYTE ESTERASE TRACE Leu/uL (Negative); URINE NITRATE NEGATIVE (NEGATIVE); URINE PROTEIN NEGATIVE (NEGATIVE); URINE UROBILINOGEN NORMAL mg/dL (0.2-1.0)
[2017-06-08] MEDS ORDERED: Rosuvastatin Calcium 2.5 mg Tab PO SCH (22:00)
[2017-06-09 00:38] VITALS: RESP 20
[2017-06-09] MEDS ORDERED: guaiFENesin DM 100 mg-10 mg/5 ml UD PO ONE (02:11)
[2017-06-09] MEDS: Vancomycin 2 GM in Sodium Chloride 0.9% 500 ML IVPB SCH (06:02)
[2017-06-09 08:34] VITALS: TEMP 99.1; O2SAT 93
[2017-06-09 08:50] LABS: ALB/GLOB RATIO 1.2 (1.0-2.1); ALBUMIN 3.8 g/dL (3.5-5.0); ALT/SGPT 67 U/L (21-72); AST/SGOT 47 U/L (17-59); BLOOD UREA NITROGEN 9 mg/dL (9-20); CALCIUM 8.2 mg/dl (8.6-10.4); GFR AFRICAN-AMERICAN > 60; GFR NON-AFRICAN AMERICAN > 60
[2017-06-09] MEDS: (Novolin R) Insulin Human Regular 100 units/ml vial SC SCH ×2 (09:07→12:43)
[2017-06-09] MEDS: Fluticasone Nasal 50 mcg/Spray NAS SCH (09:08)
--- NOTE | 2017-06-09 09:42 | RAD ---
Chest x-ray single frontal view History: CHF exacerbation. Comparison: 06/08/2017 Findings: Mild venous congestion. Mild left basilar atelectasis. Cardiomegaly. Degenerative changes in the spine with paravertebral osteophytes. Impression: Mild venous congestion. Mild left basilar atelectasis. Cardiomegaly.
[2017-06-09] MEDS: Saccharomyces Boulardi 250 mg Cap PO SCH (11:15)
[2017-06-09] MEDS: Pantoprazole 40 mg EC Tab PO SCH (11:15)
--- NOTE | 2017-06-09 13:10 | CP.PCM.DIS ---
Provider - Provider Date of Admission: 06/03/17 17:43 Attending physician: Raul Reyes MD Consults: Cardiology - Dr. Alex LEÓN - Dr. Nestor Chase - [facility] - Dr. Susana Nobles - Dr. Damon Time Spent in preparation of Discharge (in minutes): 65 Diagnosis - Discharge Diagnosis (1) Venous stasis dermatitis of both lower extremities Status: Chronic (2) Venous stasis ulcer Status: Chronic (3) Bilateral edema of lower extremity Status: Chronic (4) Morbid obesity Status: Chronic Hospital Course - Lab Results Lab Results: Micro Results 06/03/17 21:00 Blood Blood Culture - Final NO GROWTH AFTER 5 DAYS 06/03/17 21:00 Blood Gram Stain - Final TEST NOT PERFORMED 06/03/17 21:30 Blood Blood Culture - Final NO GROWTH AFTER 5 DAYS 06/03/17 21:30 Blood Gram Stain - Final TEST NOT PERFORMED 06/04/17 11:38 Leg - Left Gram Stain - Final 06/04/17 11:38 Leg - Left Wound Culture - Final Methicillin Resistant S Aureus Most Recent Lab Values WBC 12.1 K/uL (4.8-10.8) H 06/08/17 11:55 RBC 4.47 Mil/uL (4.40-5.90) 06/08/17 11:55 Hgb 13.5 g/dL (12.0-18.0) 06/08/17 11:55 Hct 39.2 % (35.0-51.0) 06/08/17 11:55 MCV 87.6 fL (80.0-94.0) 06/08/17 11:55 MCH 30.1 pg (27.0-31.0) 06/08/17 11:55 MCHC 34.3 g/dL (33.0-37.0) 06/08/17 11:55 RDW 14.0 % (11.5-14.5) 06/08/17 11:55 Plt Count 345 K/uL (130-400) 06/08/17 11:55 MPV 7.0 fL (7.2-11.7) L 06/08/17 11:55 Neut % (Auto) 77.4 % (50.0-75.0) H 06/08/17 11:55 Lymph % (Auto) 11.8 % (20.0-40.0) L 06/08/17 11:55 [place] % (Auto) 8.3 % (0.0-10.0) 06/08/17 11:55 Eos % (Auto) 1.6 % (0.0-4.0) 06/08/17 11:55 Baso % (Auto) 0.9 % (0.0-2.0) 06/08/17 11:55 Neut # 9.4 K/uL (1.8-7.0) H 06/08/17 11:55 Lymph # 1.4 K/uL (1.0-4.3) 06/08/17 11:55 [place] # 1.0 K/uL (0.0-0.8) H 06/08/17 11:55 Eos # 0.2 K/uL (0.0-0.7) 06/08/17 11:55 Baso # 0.1 K/uL (0.0-0.2) 06/08/17 11:55 PT 10.9 SECONDS (9.7-12.2) 06/03/17 16:45 INR 1.0 06/03/17 16:45 APTT 28 SECONDS (21-34) 06/03/17 16:45 Sodium 131 mmol/L (132-148) L 06/09/17 08:17 Potassium 4.0 mmol/L (3.6-5.2) 06/09/17 08:17 Chloride 97 mmol/L (98-107) L 06/09/17 08:17 Carbon Dioxide 24 mmol/L (22-30) 06/09/17 08:17 Anion Gap 13 (10-20) 06/09/17 08:17 BUN 9 mg/dL (9-20) 06/09/17 08:17 Creatinine 0.6 mg/dL (0.8-1.5) L 06/09/17 08:17 Est GFR ( Amer) > 60 06/09/17 08:17 Est GFR (Non-Af Amer) > 60 06/09/17 08:17 POC Glucose (mg/dL) 134 mg/dL (65-110) H 06/09/17 11:38 Random Glucose 132 mg/dL (75-110) H 06/09/17 08:17 Hemoglobin A1c 6.9 % (4.2-6.5) H 06/03/17 21:37 Calcium 8.2 mg/dl (8.6-10.4) L 06/09/17 08:17 Phosphorus 3.0 mg/dL (2.5-4.5) 06/08/17 11:56 Magnesium 1.7 mg/dL (1.6-2.3) 06/08/17 11:56 Total Bilirubin 0.4 mg/dL (0.2-1.3) 06/09/17 08:17 AST 47 U/L (17-59) 06/09/17 08:17 ALT 67 U/L (21-72) 06/09/17 08:17 Alkaline Phosphatase 70 U/L (38-126) 06/09/17 08:17 NT-Pro-B Natriuret Pep 27.5 pg/mL (0-450) 06/08/17 11:56 Total Protein 7.0 g/dL (6.3-8.3) 06/09/17 08:17 Albumin 3.8 g/dL (3.5-5.0) 06/09/17 08:17 Globulin 3.2 gm/dL (2.2-3.9) 06/09/17 08:17 Albumin/Globulin Ratio 1.2 (1.0-2.1) 06/09/17 08:17 Triglycerides 173 mg/dL (0-149) H 06/04/17 07:20 Cholesterol 184 mg/dL (0-199) 06/04/17 07:20 LDL Cholesterol Direct 112 mg/dL (0-129) 06/04/17 07:20 HDL Cholesterol 41 mg/dL (30-70) 06/04/17 07:20 Urine Color Yellow (YELLOW) 06/08/17 15:41 Urine Clarity Clear (Clear) 06/08/17 15:41 Urine pH 6.0 (5.0-8.0) 06/08/17 15:41 Ur Specific [place] 1.016 (1.003-1.030) 06/08/17 15:41 Urine Protein Negative mg/dL (NEGATIVE) 06/08/17 15:41 Urine Glucose (UA) Normal mg/dL (Normal) 06/08/17 15:41 Urine Ketones Negative mg/dL (NEGATIVE) 06/08/17 15:41 Urine Blood 1+ (NEGATIVE) H 06/08/17 15:41 Urine Nitrate Negative (NEGATIVE) 06/08/17 15:41 Urine Bilirubin Negative (NEGATIVE) 06/08/17 15:41 Urine Urobilinogen Normal mg/dL (0.2-1.0) 06/08/17 15:41 Ur Leukocyte Esterase Trace Iris/uL (Negative) 06/08/17 15:41 Urine WBC (Auto) 1 /hpf (0-5) 06/08/17 15:41 Urine RBC (Auto) 5 /hpf (0-3) H 06/08/17 15:41 Ur Squamous Epith Cells 2 /hpf (0-5) 06/08/17 15:41 Urine Bacteria Rare (<OCC) 06/08/17 15:41 Urine Yeast (Budding) Rare /hpf (NEGATIVE) H 06/08/17 15:41 Vancomycin Trough 16.3 ug/mL (5.0-10.0) H 06/08/17 11:55 Influenza Typ A,B (EIA) Negative for flu a/b (NEGATIVE) 06/03/17 22:27 - Hospital Course Hospital Course: Patient: Christopher Rubio Admission Date: 06/03/17 Discharge Date: 06/09/17 Discharge Summary PMD: Dr. Elaina Terrell Consults: PRINCIPAL DISCHARGE DIAGNOSES: CC: HISTORY OF PRESENT ILLNESS: 47 year old male with PMHx of chronic b/l leg edema/infections/ulcers (since 2004), and DMII presents with b/l lower ext. cellulitis, b/l lower ext. edema, and left lower ext. ulcer. Symptoms are associated with Lower Ext. tenderness, numbness/tingling, low ext. weakness and slight decreased range of motion. He states that his leg drains fluid at times. Patient has been having these symptoms since 2004. He sees a vascular surgeon (Dr. Serrato?) and states he gets shots for his leg edema. He does not know what the shot is. He went to his vascular doctor this morning for the shots. He also went to his PMD afterwards who sent him to the ED to get treated for cellulitis that has failed outpatient treatment. Patient is somewhat of a poor historian. Of note, patient also complain of having episodes of pleuritic chest pain, orthopnea, and dyspnea on exertion in the past. Had an ECHO a couple months ago and was told that it was normal. Also complains of FERNANDO symptoms. Patient sent for sleep study but insurance doesn't cover it. ROS POSITIVES: Lower Ext. tenderness, numbness/tingling, and decreased range of motion NEGATIVES: Fevers, chills, current SOB, current chest pain, current abdominal pain, nausea, vomiting, diarrhea, constipation, urinary symptoms. PMHx: chronic leg ulcers, chronic leg edema, chronic leg infections, DMII PSHx: laser surgery on legs (5-7 years ago) Allergies: NKDA, Seasonal Allergies Social Hx: Denies tobacco, alcohol, or illicit drug use. Works in [employer] at [employer] but is on disability. Lives by himself in [place] (Basement of 2 family home) FamHx: Unknown Meds: Unknown Insulin, Unknown Diabetic Pill PMD: Dr. Elaina Terrell SUMMARY OF COURSE: Faye Rubio is a 47-year-old male who was admitted to [facility] on 06/03/2017-06/09/2017 for lower extremity cellulitis with ulcer and MRSA infection. His past medical history of note includes diabetes mellitus, CHF and chronic bilateral leg edema/infections/ulcers since 2004. While at the hospital, he treated with IV antibiotics. Podiatry, Dr. Meza was consulted. Podiatry drained the blisters and cultured the fluid for the bilateral lower extremities. They applied Xeroform, DSD MARCIO to the bilateral lower extremities. Podiatry also placed UNNA boots on him. Vascular, Dr. Gautam was consulted and said that no surgical intervention was required at this time. Infectious disease, Dr. Rizo was consulted on the case due to possible cellulitis. Wound culture in the left leg grew MRSA. Patient was already on a therapeutic dose of Vancomycin. Blood Culture was negative, urine culture was negative. Patient was to go to [facility] for rehab and to continue getting IV antibiotics. Patient refused to go and stated that he will see his vascular doctor. A very thorough and long discussion took place with the process improvement manager, Drum Tester, ca and the Attending physician (Dr. Chavez Bright) about the benefits of going to [id number] and the risk involved in not going. Patient stated "I understand" but still refused to go to rehab. Patient was discharged with the instructions below which he was agreeable with. Rx Needed: Aspirin 81 mg, 1 tab PO 1x/day (breakfast), Disp #30, no refills Lisinopril 10 mg 1 tab PO 1x/day (breakfast), Disp #30, no refills Carvedilol 3.125 mg 1 tab PO 2x/day (breakfast & dinner), Disp #30, no refills Atrovastatin 10 mg 1 tab PO 1x/day (dinner), Disp #30, no refills Florastor 250 mg, 1 tab PO 2x/day (2 hours after breakfast and 2 hours before dinner), Disp #74, no refills Linezolid 600 mg 1 tab PO 2x/day (breakfast & dinner), Disp #14, no refills Instructions: 1) You stated you had enough of unspecified Insulin & [place], syringes and oral diabetes medication. Please continue. 2) Follow up with your PMD Dr. Terrell in the next 7 days. Bring all discharge paperwork with you. 3) Schedule follow up with [facility] for removal of UNNA Boots by 06/14/17. Call [phone] for an appointment. 4) Schedule appointment with cardiology Dr. Gloria [phone] for further evaluation of heart failure. 5) Schedule appointment with Lung Doctor Dr. Damon for sleep study by calling [phone]. 6) Take care and be well. - Date & Time of H&P Date of H&P: 06/09/17 Time of H&P: 19:41 Discharge Exam - Head Exam Head Exam: NORMOCEPHALIC - Additional Findings Additional findings: - Additional Findings Additional findings: Morbidly Obese - Head Exam Head Exam: ATRAUMATIC, NORMAL INSPECTION, NORMOCEPHALIC - Eye Exam Eye Exam: Normal appearance. absent: Scleral icterus - ENT Exam ENT Exam: Mucous Membranes Moist - Neck Exam Neck exam: Negative for: Lymphadenopathy - Respiratory Exam Respiratory Exam: Accessory Muscle Use, Clear to Auscultation Bilateral. absent : Rales, Rhonchi, Wheezes - Cardiovascular Exam Cardiovascular Exam: RRR, +S1, +S2 - GI/Abdominal Exam GI & Abdominal Exam: Soft, non-tenderner - Exam Exam: Normal Inspection - Extremities Exam Extremities exam: Positive for: pedal edema (+3), tenderness. Negative for: normal inspection - Neurological Exam Neurological exam: Alert, Oriented x3 - Psychiatric Exam Psychiatric exam: Normal Affect, Normal Mood - Skin Additional comments: R leg - +3 Edema erythematous, scaly, non-draining (skin changes start at ankle are a 1[address] to the knee) - Wrapped in UNNA Boot L leg - +3 edema, 1x1cm ulcer on the left lower ext (Healing). - Wrapped in UnnaBoot Discharge Plan - Discharge Medications Prescriptions: Aspirin [Aspirin Chewable] 81 mg PO DAILY #30 chew Atorvastatin [Lipitor] 10 mg PO DIN #30 tab Carvedilol [Coreg] 3.125 mg PO BID #60 tab Linezolid 600 mg PO BID #14 tablet Lisinopril [Zestril] 10 mg PO DAILY #30 tab Saccharomyces Boulardi [Florastor] 250 mg PO BID #74 cap - Follow Up Plan Condition: FAIR Disposition: HOME/ ROUTINE Instructions: Lisinopril (By mouth), Aspirin (By mouth), Atorvastatin (By mouth ), Carvedilol (By mouth), Linezolid (By mouth), Probiotic (By mouth), Heart Failure (DC), Heart Failure (GEN), Pacemaker (DC), Pacemaker (GEN), Pulmonary Edema (DC), Pulmonary Edema (GEN), Cellulitis (DC), Cellulitis (GEN), Obesity ( DC), Obesity (GEN), Ascites (DC), Ascites (GEN) Additional Instructions: Rx Needed: Aspirin 81 mg, 1 tab PO 1x/day (breakfast), Disp #30, no refills Lisinopril 10 mg 1 tab PO 1x/day (breakfast), Disp #30, no refills Carvedilol 3.125 mg 1 tab PO 2x/day (breakfast & dinner), Disp #30, no refills Atrovastatin 10 mg 1 tab PO 1x/day (dinner), Disp #30, no refills Florastor 250 mg, 1 tab PO 2x/day (2 hours after breakfast and 2 hours before dinner), Disp #74, no refills Linezolid 600 mg 1 tab PO 2x/day (breakfast & dinner), Disp #14, no refills Instructions: 1) You stated you had enough of unspecified Insulin & [place], syringes and oral diabetes medication. Please continue. 2) Follow up with your PMD Dr. Terrell in the next 7 days. Bring all discharge paperwork with you. 3) Schedule follow up with [facility] for removal of UNNA Boots by 06/14/17. Call [phone] for an appointment. 4) Schedule appointment with cardiology Dr. Gloria [phone] for further evaluation of heart failure. 5) Schedule appointment with Lung Doctor Dr. Damon for sleep study by calling [phone]. 6) Take care and be well. Referrals: Everett Damon MD [Staff Provider] - Bethel Willis MD [Staff Provider] - Nabil Rizo MD [Staff Provider] - Song Gautam Jr., MD [Staff Provider] - Jaiden Meza DPM [Staff Provider] -
--- NOTE | 2017-06-09 13:43 | VASCLAB ---
STUDY DESCRIPTION: HISTORY: Leg pain PRIORS: None. TECHNIQUE: Pulse volume recording waveforms and segmental pressures of bilateral lower extremities at multiple levels were obtained. Ankle Brachial Indices (ABIs) were calculated. Report prepared by DANIELLE Brody, RVT RIGHT LOWER EXTREMITY: * Brachial artery: Pressure - mmHg. * High thigh: Pressure - mmHg: Ratio - : PVR waveform - Pulsatile * Low thigh: Pressure - mmHg: Ratio - PVR waveform: Pulsatile * Calf: Pressure - 152 mmHg: Ratio - 1.21 PVR waveform: Pulsatile * Posterior tibial Artery: Pressure - 146 mmHg: Ratio - 1.16 PVR waveform: Pulsatile * Dorsalis pedis Artery: Pressure - 132 mmHg: Ratio - 1.05 PVR waveform: Pulsatile * Great toe: Pressure - mmHg: Ratio - PVR waveform: Ankle brachial index (ANIRUDH): 1.16 LEFT LOWER EXTREMITY: * Brachial artery: Pressure - mmHg. * High thigh: Pressure - mmHg: Ratio - : PVR waveform - Pulsatile * Low thigh: Pressure - mmHg: Ratio - PVR waveform: Pulsatile * Calf: Pressure - 151 mmHg: Ratio - 1.20 PVR waveform: Pulsatile * Posterior tibial Artery: Pressure - 146 mmHg: Ratio - 1.16 PVR waveform: Pulsatile * Dorsalis pedis Artery: Pressure - 123 mmHg: Ratio - 0.98 PVR waveform: Pulsatile * Great toe: Pressure - mmHg: Ratio - PVR waveform: Ankle brachial index (ANIRUDH): 1.16 OTHER FINDINGS: Right: Left: IMPRESSION: Right: There was no evidence of hemodynamically significant arterial insufficiency in the right lower extremity. Left: There was no evidence of hemodynamically significant arterial insufficiency in the left lower extremity.
[2017-06-09 16:36] VITALS: BP 118/74; PULSE 97
== END 2017-06-09 14:10 | disposition home or self-care (01) | DRG 300 ==
LOC: C.ER 14:39 → C.9E 17:43 → C.3T 21:53 → C.5S 06-06 14:41
PROVIDERS: ADMIT Internal Medicine; ATTEND Internal Medicine
DX: I83.228 Varicose veins of left lower extremity with both ulcer of other part of lower extremity and inflammation (principal); L03.116 Cellulitis of left lower limb; E11.622 Type 2 diabetes mellitus with other skin ulcer; I50.9 Heart failure, unspecified; E66.01 Morbid (severe) obesity due to excess calories; L03.115 Cellulitis of right lower limb; L97.929 Non-pressure chronic ulcer of unspecified part of left lower leg with unspecified severity; Z68.44 Body mass index [BMI] 60.0-69.9, adult; I83.218 Varicose veins of right lower extremity with both ulcer of other part of lower extremity and inflammation; G47.33 Obstructive sleep apnea (adult) (pediatric); J30.2 Other seasonal allergic rhinitis; I89.0 Lymphedema, not elsewhere classified; Z79.899 Other long term (current) drug therapy; M19.072 Primary osteoarthritis, left ankle and foot; M19.071 Primary osteoarthritis, right ankle and foot; B95.62 Methicillin resistant Staphylococcus aureus infection as the cause of diseases classified elsewhere; I87.8 Other specified disorders of veins